=== PATIENT | male | born 1945 | race Caucasian/White ===

== ENCOUNTER 2016-10-06 11:17 | Day surgery (SDC) | payer MEDICARE, OTHER ==
[~2016-10-06] VITALS: Ht 167.6 cm; Wt 95.0 kg
[~2016-10-06 11:17] MED LIST: ADV25050 INH; ASPI-664 PO; FINA5TAB4 PO; GLIP5TAB13 PO; HYDR25TA6 PO; IPRA12.93 IH; LISI-329 PO; METF1000 PO; NIFE90TA11 PO; ROSU5TAB5 PO; TAMS0.4C2 PO
[2016-10-06 12:18] VITALS: Ht 167.6 cm; Wt 95.0 kg
[2016-10-06 12:54] VITALS: BP 148/72; PULSE 58; RESP 23
[2016-10-06] MEDS ORDERED: LIDOCAINE 2% (SDV) 5 ML INJ ONE (13:40)
[2016-10-06] MEDS ORDERED: PROPOFOL 40 ML ONE (13:40)
--- NOTE | 2016-10-06 15:16 | GILP ---
DATE OF PROCEDURE: 10/06/2016 NAME OF PROCEDURE: Colonoscopy, biopsy and polypectomy. SURGEON: Arjun Pompa MD PREOPERATIVE DIAGNOSES: Rectal bleeding. POSTOPERATIVE DIAGNOSES: 1. Colonoscopy all the way to the cecum. 2. Multiple right colon polyps were removed using the biopsy forceps as well as snare and electroca utery. 3. Internal and external hemorrhoids. INDICATION FOR THE PROCEDURE: Mr. Daniel Maldonado is a 71-year-old male patient who had rectal blee ding. The patient was scheduled for colonoscopy for further evaluation. The procedure and possible complications were well explained to the patient, he understood and conse nted to the procedure. DESCRIPTION OF PROCEDURE: Under the influence of anesthesia, the colonoscope was carefully introduc ed in the rectum and under direct vision, it was advanced all the way to the cecum. FINDINGS: The patient had multiple right colon polyps and they were removed using the snare and ludwig ctrocautery. The patient also had small polyps and they were removed using the biopsy forceps. He was noted to have internal and external hemorrhoids. He tolerated the procedure very well and there was no complication from the procedure. At the end o f the procedure, he was awake with stable vital signs and he was discharged home to the care of his family. IMPRESSION: 1. Colonoscopy all the way to the cecum. 2. Multiple right colon polyps were removed using the biopsy forceps as well as snare and electroca utery. 3. Internal and external hemorrhoids. PLAN: 1. Await histopathology report. 2. Anusol-HC 2.5% cream at bedtime. 3. Because of the multiple polyps the patient had, he will need repeat colonoscopy in 3 years. Dictated By: ARJUN SAUNDERS/KERRY Conf#: [id number] DID#: [id number] CC: RAJUN POMPA MD;*EndCC*
[2016-10-06 15:19] VITALS: BP 166/81; PULSE 78; RESP 12
--- NOTE | 2016-10-06 21:01 | CONS ---
DATE OF ADMISSION: 10/06/2016 DATE OF CONSULTATION: TYPE OF CONSULTATION: Preoperative Gastroenterology HISTORY OF PRESENT ILLNESS: Mr. Daniel Maldonado is a 71-year-old male patient who has been referred to me for further evaluation of rectal bleeding associated with anemia. The patient has been takin g iron. There is no past history of colon neoplasm. His appetite has been good and he is not losin g any weight. He does not have any upper abdominal pain, nausea or vomiting. The patient has lower abdominal pain. There is no history of gallstones. He does not have any fever, chills or jaundice . There is no history of liver disease. 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 He is hypertensive. He has diabetes. There is no history of heart disease. He has got chronic obstructive pulmonary disease. There is no history of kidney disease. The patient has got prostat e cancer for which he has received radiation therapy. SOCIAL HISTORY: He used to smoke, now he has quit smoking. He does not abuse alcohol. FAMILY HISTORY: Negative for gastrointestinal tract neoplasm. ALLERGIES: THERE IS NO HISTORY OF SIGNIFICANT DRUG ALLERGY. MEDICATIONS 1. Lisinopril 20 mg p.o. daily. 2. Nifedipine ER 90 mg p.o. daily. 3. Hydrochlorothiazide 25 mg p.o. daily. 4. Glyburide 5 mg p.o. b.i.d. 5. Metformin 500 mg p.o. b.i.d. 6. Januvia 100 mg p.o. daily. 7. Zytiga 500 mg p.o. b.i.d. 8. Finasteride 5 mg p.o. daily. 9. Prednisone 5 mg p.o. b.i.d. 10. Flomax 0.4 mg p.o. daily. PHYSICAL EXAMINATION: VITAL SIGNS: He is 5 feet 6 inches tall and he weighs 215 pounds. BMI 35. Blood pressure 138/84. HEART: Examination of the heart reveals normal first and second heart sounds. LUNGS: Clear. ABDOMEN: Soft without any distention. Liver and spleen are not palpable. There are no masses. Th ere is no focal tenderness. Normal bowel sounds are heard. RECTAL: Reveals external hemorrhoids. No rectal mass is identified. There is no active bleeding a t the time of examination. CENTRAL NERVOUS SYSTEM: Does not reveal any focal neurological deficit. IMPRESSION: 1. Rectal bleeding. 2. Anemia. 3. Lower abdominal pain. 4. Hypertension. 5. Diabetes mellitus. 6. Chronic obstructive pulmonary disease. 7. Prostate cancer for which he has received radiation therapy. 8. Obesity. PLAN: 1. Colonoscopy for further evaluation. 2. Because of the multiple medical problems and obesity, he needs monitored anesthesia care for the procedure. 3. The patient was strongly advised to lose weight. 4. Dietary consultation was recommended. 5. Follow up with the primary MD for the management of elevated BMI and hypertension. The procedure and possible complications were well explained to the patient. He understands and con sents to the procedure. I thank you once again. With warmest personal regards, Dictated By: SHANIKA POMPA MD GD/KERRY Conf#: [id number] DID#: [id number] CC: SHANIKA POMPA MD;*EndCC*
== END 2016-10-06 17:15 | disposition home or self-care (01) ==
LOC: GIL 11:17
PROVIDERS: ATTEND Internal Medicine Gastroenterology
DX: D12.2 Benign neoplasm of ascending colon (principal); K62.5 Hemorrhage of anus and rectum; K64.8 Other hemorrhoids; K64.4 Residual hemorrhoidal skin tags; I10 Essential (primary) hypertension; E11.9 Type 2 diabetes mellitus without complications; D64.9 Anemia, unspecified; E66.9 Obesity, unspecified; Z68.33 Body mass index [BMI] 33.0-33.9, adult; J44.9 Chronic obstructive pulmonary disease, unspecified; Z87.891 Personal history of nicotine dependence; Z85.46 Personal history of malignant neoplasm of prostate; Z92.3 Personal history of irradiation; Z79.84 Long term (current) use of oral hypoglycemic drugs
CPT/HCPCS: 88305

== ENCOUNTER 2018-06-01 11:58 | Inpatient (IN) | payer MEDICARE, OTHER ==
[~2018-06-01] VITALS: Ht 167.6 cm; Wt 95.5 kg
[~2018-06-01 11:58] MED LIST changes: -ASPI-664 PO; +ATRO IH; +CRES5 PO; -IPRA12.93 IH; -METF1000 PO; +METF100010 PO; -ROSU5TAB5 PO
[2018-06-01] MEDS ORDERED: ALBUTEROL 0.083% (NEB) 2.5 MG/3 ML AMP NEB STA (13:38)
[2018-06-01] MEDS ORDERED: IPRATROPIUM (NEB) 0.5 MG/2.5 ML AMP NEB STA (13:38)
[2018-06-01] MEDS ORDERED: DEXAMETHASONE (1 MG/ML PO SYG) PO ONE (14:00)
[2018-06-01] MEDS ORDERED: IPRATROPIUM (NEB) 0.5 MG/2.5 ML AMP HHN ONE (14:30)
--- NOTE | 2018-06-01 15:13 | ERD ---
ER Documentation Chief Complaint Chief Complaint PRODUCTIVE COUGH X 2 WEEKS HPI 72-year-old male history of asthma, insulin independent diabetes mellitus type 2, hypertension presents to the ED complaining of productive cough and shortness of breath for the past 2-3 weeks. Patient states that he was seen by his [facility] physician on May 17 in which they have given an Z-Lencho, patient states that he has finished it but continues to have shortness of breath and cough. Patient denies fevers, chest pain. He states that he uses his inhaler intermittently, he did not use his inhaler today. Patient states that he has a history of smoking but he quit 10 years ago. ROS All systems reviewed and are negative except as per history of present illness. Medications Home Meds Reported Medications Salmeterol Xinaf/Fluticasone* (Advair*) 250-50 Diskus Inhaler, 1 INH INH BID, INH 02/17/14 Ipratropium [place]* (Atrovent HFA*) 12.9 Gm Aer.w.adap, 2 PUFF IH Q4H PRN for SHORTNESS OF BREATH, EA 02/17/14 Glipizide* (Glipizide*) 5 Mg Tablet, 5 MG PO BID, TAB 02/17/14 Metformin Hcl* (Metformin Hcl*) 1,000 Mg Tablet, 1000 MG PO BID, TAB 02/17/14 Rosuvastatin Calcium* (Crestor*) 5 Mg Tablet, 5 MG PO HS, TAB 02/17/14 Finasteride* (Finasteride*) 5 Mg Tablet, 5 MG PO DAILY 02/22/13 Nifedipine* (Nifedipine ER*) 90 Mg Tablet.er, 90 MG PO DAILY 02/22/13 Lisinopril-Hydrochlorothiazide (Lisinopril-HCTZ) 1 Tab Tablet, 1 TAB PO DAILY 02/22/13 Hydrochlorothiazide (Hydrochlorothiazide) 25 Mg Tablet, 25 MG PO DAILY 02/22/13 Tamsulosin Hcl* (Tamsulosin Hcl*) 0.4 Mg Cap.er.24h, 0.4 MG PO DAILY 02/22/13 Allergies Allergies: Coded Allergies: No Known Allergy (Unverified , 02/17/14) PMhx/Soc History of Surgery: Yes (gastric sx., cataract sx.) Anesthesia Reaction: No Hx Neurological Disorder: Yes (stroke 2008) Hx Respiratory Disorders: Yes (COPD) Hx Cardiac Disorders: Yes (HTN,HYPERLIPIDEMIA) Hx Psychiatric Problems: No Hx Miscellaneous Medical Probl: Yes Hx Alcohol Use: No Hx Substance Use: No Hx Tobacco Use: Yes Smoking Status: Current every day smoker Physical Exam Vitals Vital Signs Date Temp Pulse Resp B/P (MAP) Pulse Ox O2 O2 Flow FiO2 Time Delivery Rate 06/01/18 98.2 72 17 137/65 95 Room Air 16:45 (89) 06/01/18 81 18 99 21 14:23 06/01/18 97.4 81 18 134/71 99 12:00 (92) Physical Exam Const: No acute distress Head: Atraumatic Eyes: Normal Conjunctiva ENT: Normal External Ears, Nose and Mouth. Neck: Full range of motion. No meningismus. Resp: Clear to auscultation bilaterally Cardio: Regular rate and rhythm, no murmurs Abd: Soft, non tender, non distended. Normal bowel sounds Skin: No petechiae or rashes Back: No midline or flank tenderness Ext: No cyanosis, or edema Neur: Awake and alert Psych: Normal Mood and Affect Results 24 hrs Current Medications Medications Dose Sig/Jarod Start Time Status Last (Trade) Ordered Route PRN Stop Time Admin Dose Reason Admin Albuterol 5 mg ONCE STAT 06/01/18 DC 06/01/18 (Proventil NEB 13:38 14:18 0.083% (Neb)) 06/01/18 13:40 Ipratropium 1.5 mg ONCE STAT 06/01/18 DC Orion NEB 13:38 (Atrovent 06/01/18 14:13 0.02% (Neb)) 10 mg ONCE ONCE 06/01/18 DC 06/01/18 Dexamethasone PO 14:00 14:04 (Decadron 06/01/18 14:01 Intensol Liquid) Ipratropium 1 mg ONCE ONCE 06/01/18 DC 06/01/18 Orion HHN 14:30 14:19 (Atrovent 06/01/18 14:31 0.02% (Neb)) Procedures/MDM 72-year-old male history of asthma, diabetes type 2 and hypertension presents to the ED complaining of productive cough and wheezing for the past 2-3 weeks. On exam, patient did have evidence of wheezing. RT was consulted and he was given a breathing treatment of albuterol and Atrovent. I have reassessed him and he states that he feels a lot better with breathing. Chest x-ray showed bilateral pulmonary nodular opacities therefore a CT scan was ordered in which radiologist stated several sclerotic lesions that were concerning for metastatic disease. I discussed this case with my supervising physician Dr. Harris who will consult hospitalist to admit to [facility] for further evaluation and management. Patient stable to be transferred to floor CT chest 1. Several sclerotic lesions of the visualized appendicular and axial skeleton, concerning for metastatic disease. Correlate with clinical history. Consider further evaluation with nuclear medicine bone scan. 2. Cluster of branching centrilobular nodules in the anterior right lower lobe suggestive of infectious or inflammatory bronchiolitis. 3. A few pulmonary nodules measuring up to 4 mm. No routine follow-up is recommended. However, if the patient is high risk, then optional follow-up CT chest in 12-months may be considered. 4. Mild centrilobular emphysema. CXR: Mild partial atelectasis in the left lung base. No focal consolidation or convincing effusion. No pneumothorax. Heart size is normal. Bilateral pulmonary nodular opacities, measuring up to 11 mm over the right upper lobe and 16 ml over the left mid lung zone Departure Diagnosis: Primary Impression: Cough Condition: Fair MOIZ STEVEN PA-C Jun 01, 2018 15:13
[2018-06-01] MEDS ORDERED: ASPI-817 PO (17:17)
[2018-06-01] MEDS ORDERED: BUDE6HFA INHALATION (17:17)
[2018-06-01] MEDS ORDERED: [UNRECOGNIZED DRUG - MIXTURE] PO (17:24)
[2018-06-01] MEDS ORDERED: ALBU18HF INHALATION (17:25)
[2018-06-01] MEDS ORDERED: LISI-471 PO (17:26)
[2018-06-01] MEDS ORDERED: SITA100T11 PO (17:26)
[2018-06-01] MEDS ORDERED: HYDR25TA6 PO (17:27)
[2018-06-01] MEDS ORDERED: CRES5 PO (17:27)
[2018-06-01] MEDS ORDERED: DEXL60CA2 PO (17:28)
[2018-06-01] MEDS ORDERED: PRED5TAB PO (17:29)
[2018-06-01] MEDS ORDERED: NIFE90TA11 PO (17:29)
[2018-06-01] MEDS ORDERED: ABIR500T PO (17:30)
[2018-06-01] MEDS ORDERED: LINA145C PO (17:30)
[2018-06-01] MEDS ORDERED: FINA5TAB4 PO (17:31)
[2018-06-01] MEDS ORDERED: ERGO500013 PO (17:31)
[2018-06-01] MEDS ORDERED: TAMS0.4C2 PO (17:32)
[2018-06-01] MEDS ORDERED: ACETAMINOPHEN 325 MG TAB PO PRN ×2 (18:00→20:30)
[2018-06-01] MEDS ORDERED: ONDANSETRON 4 MG INJ IV PRN ×2 (18:00→20:30)
[2018-06-01] MEDS ORDERED: SOD CHLORIDE 0.9% 1,000 ML IV SCH (20:15)
[2018-06-01 20:30] VITALS: Ht 167.6 cm; Wt 95.5 kg
[2018-06-01] MEDS ORDERED: POTASSIUM CHLORIDE 20 MEQ POWDER FOR ORAL SOLN PO ONE (20:30)
[2018-06-01] MEDS ORDERED: GUAIFENESIN/CODEINE 5ML CUP PO PRN (20:30)
[2018-06-01] MEDS ORDERED: HYDROCODONE/APAP (5/325) TAB PO PRN (20:30)
[2018-06-01] MEDS ORDERED: ALBUTEROL/IPRATROPIUM (NEB) 3 ML AMP HHN PRN (20:30)
[2018-06-01] MEDS ORDERED: NACL 0.9% 3 ML SYG IV SCH (20:30)
[2018-06-01] MEDS ORDERED: TAMSULOSIN (SR) 0.4 MG CAP PO SCH (21:00)
--- NOTE | 2018-06-01 21:14 | HP ---
Date/Time of Note Date/Time of Note DATE: 06/01/18 TIME: 21:14 Assessment/Plan VTE Prophylaxis Pharmacological prophylaxis: other Lines/Catheters IV Catheter Type (from [facility]): [place] Assessment/Plan Hospital Course Objective Physical exam General: Patient is laying in bed and answers questions appropriately Mentation: Patient is alert and oriented 4, Head: Normocephalic atraumatic Eyes: EOMI, pupils reactive to light Neck: Supple, nontender, midline Respiratory: Wheezing to auscultation bilaterally Cardiovascular: regular rate, no obvious murmurs Gastrointestinal: non-tender to palpation, bowel sounds heard. Neurological: Moves all extremities spontaneously Skin: No new skin lesions Assessment and plan Acute cough and mild shortness of breath -Possibly patient originally had a viral illness that has now exacerbated into a possible bacterial illness as CT does show infectious or inflammatory bronchiolitis, given the fact that patient takes prednisone every day with the Zytiga, patient is immunocompromised so will give cefepime -Budesonide and DuoNeb nebulizers -Patient very stable History of prostate cancer with metastases -Unable to confirm 100% from or patient if they know about the metastases, patient is seen by Dr. Mendez on a normal basis, he and his oncologist may very well know about the meds, instead of giving more radiation of this non-emergent issue, I will defer to day team to speak to Dr. Mendez in the daytime in order to figure out if this is a known issue or a new issue. If new I recommend castro scan CT. Lung nodules -Possible metastases, however will need to speak to patient's oncologist and urologist to see if this is a new finding, monitor for now Cholelithiasis -Asymptomatic, monitor Possible and adrenal adenoma -Monitor Emphysema -Nebulizers Disposition -Admit patient for IV antibiotics for his possible infectious bronchitis, day team will need to speak to Dr. Mendez in order to determine if further imaging will need to be done before patient follows up with his outpatient oncologist Result Diagram: 06/01/18 1642 06/01/18 1642 Results 24hrs Laboratory Tests Test 06/01/18 16:42 White Blood Count 9.7 Red Blood Count 4.48 L Hemoglobin 11.8 L Hematocrit 37.7 L Mean Corpuscular Volume 84.2 Mean Corpuscular Hemoglobin 26.3 L Mean Corpuscular Hemoglobin Concent 31.3 L Red Cell Distribution Width 14.4 Platelet Count 254 Mean Platelet Volume 9.4 Immature Granulocytes % 0.600 H Neutrophils % 87.5 H Lymphocytes % 7.9 L Monocytes % 3.0 Eosinophils % 0.6 Basophils % 0.4 Nucleated Red Blood Cells % 0.0 Immature Granulocytes # 0.060 H Neutrophils # 8.5 H Lymphocytes # 0.8 Monocytes # 0.3 Eosinophils # 0.1 Basophils # 0.0 Nucleated Red Blood Cells # 0.0 Sodium Level 142 Potassium Level 3.2 L Chloride Level 98 Carbon Dioxide Level 33 H Anion Gap 11 Blood Urea Nitrogen 18 Creatinine 0.82 Est Glomerular Filtrat Rate mL/min Glucose Level 212 Calcium Level 10.0 Total Bilirubin 0.3 Direct Bilirubin 0.00 Indirect Bilirubin 0.3 Aspartate Amino Transf (AST/SGOT) 15 Alanine Aminotransferase (ALT/SGPT) 15 Alkaline Phosphatase 99 Total Protein 8.1 Albumin 4.5 Globulin 3.60 H Albumin/Globulin Ratio 1.25 HPI/ROS Admit Date/Time Admit Date/Time Jun 01, 2018 at 17:42 Hx of Present Illness Patient is a male with a past medical history significant for prostate cancer on hormonal chemotherapy, asthma, diabetes mellitus and hypertension who presents to [facility] for productive cough and shortness of breath for the past 2-3 weeks that are worsening. Patient currently does state that he has some shortness of breath and some cough however I have not witnessed this during this encounter. Patient is otherwise doing well but does generally feel weak. Patient knows about his prostate cancer and after speaking with his he does follow-up with a urologist as well as a oncologist. When asked about if they know about the metastatic disease to the bone the was unsure but it seemed like they knew that it spread. Patient denies any chest pain, abdominal pain, leg pain, headache PMH/Family/Social Past Medical History Medications Current Medications Ondansetron HCl (Zofran Inj) 4 mg BRIDGE ORDER PRN IV NAUSEA/VOMITING; Start 06/01/18 at 18:00; Stop 06/02/18 at 17:59 Acetaminophen (Tylenol Tab) 650 mg ER BRIDGE PRN PO .MILD PAIN 1-3 OR TEMP; Start 06/01/18 at 18:00; Stop 06/02/18 at 17:59 Albuterol/ Ipratropium (Duoneb) 3 ml Q6HWA RESP THERAPY HHN ; Start 06/02/18 at 08:00; Status UNV Albuterol/ Ipratropium (Duoneb) 3 ml Q2H RESP THERAPY PRN HHN shortness of breath; Start 06/01/18 at 20:30; Status UNV Budesonide (Pulmicort (Neb)) 0.5 mg BID RESP THERAPY HHN ; Start 06/01/18 at 20:30; Status UNV Guaifenesin/ Codeine Phosphate (Robitussin Ac Liquid Cup) 5 ml Q4H PRN PO cough; Start 06/01/18 at 20:30; Status UNV Sodium Chloride 1,000 ml @ 40 mls/hr Q24H IV ; Start 06/01/18 at 20:15; Status UNV IV Flush (NS 3 ml) 3 ml PER PROTOCOL IV ; Start 06/01/18 at 20:30; Status UNV Ondansetron HCl (Zofran Inj) 4 mg Q6H PRN IV NAUSEA/VOMITING; Start 06/01/18 at 20:30; Status UNV Acetaminophen (Tylenol Tab) 650 mg Q6H PRN PO .PAIN 1-3 OR TEMP; Start 06/01/18 at 20:30; Status UNV Acetaminophen/ Hydrocodone Bitart ([place] (5/325)) 1 tab Q6H PRN PO .PAIN 4-6; Start 06/01/18 at 20:30; Status UNV Aspirin (Halfprin) 81 mg DAILY PO ; Start 06/02/18 at 09:00; Status UNV Finasteride (Proscar) 5 mg DAILY PO ; Start 06/02/18 at 09:00; Status UNV Hydrochlorothiazide (Hydrochlorothiazide) 25 mg DAILY PO ; Start 06/02/18 at 09:00; Status UNV Lisinopril (Zestril) 20 mg DAILY PO ; Start 06/02/18 at 09:00; Status UNV Nifedipine (Procardia Xl) 90 mg DAILY PO ; Start 06/02/18 at 09:00; Status UNV Tamsulosin HCl (Flomax) 0.8 mg HS PO ; Start 06/01/18 at 21:00; Status UNV Miscellaneous Information 5 mg QHS PO ; Start 06/01/18 at 21:00; Status UNV Miscellaneous Information (* Miscellaneous Pharmacy Order) Discontinue current oral sulfonylur... ONCE ONCE XX ; Start 06/01/18 at 20:30; Stop 06/01/18 at 20:31; Status UNV Diagnostic Test (Pha) (Accu-Chek) 1 ea XX ; Start 06/02/18 at 02:00; Status UNV Miscellaneous Information (* Miscellaneous Pharmacy Order) HYPOGLYCEMIA PROTOCOL w... ONCE ONCE XX ; Start 06/01/18 at 20:30; Stop 06/01/18 at 20:31; Status UNV Insulin Aspart (Novolog Insulin Pen) NOVOLOG *MILD* ALGORITHM WITH MEALS BEDTIME SC ; Start 06/01/18 at 21:00; Status UNV Miscellaneous Information (* Miscellaneous Pharmacy Order) Discontinue all previ... ONCE ONCE XX ; Start 06/01/18 at 20:30; Stop 06/01/18 at 20:31; Status UNV Pantoprazole (Protonix Tab) 40 mg DAILY@06 PO ; Start 06/02/18 at 06:00; Status UNV Coded Allergies: No Known Allergy (Unverified , 06/01/18) Social History Smoking Status: Current every day smoker Exam/Review of Systems Vital Signs Vitals Vital Signs Date Temp Pulse Resp B/P (MAP) Pulse Ox O2 O2 Flow FiO2 Time Delivery Rate 06/01/18 98.0 76 18 144/77 99 Nasal 19:23 (99) Cannula 76 06/01/18 21 14:23 CAMPOS DAMIAN Jun 01, 2018 21:14
[2018-06-01] MEDS ORDERED: GLUCAGON 1 MG INJ IM PRN (21:30)
[2018-06-01] MEDS ORDERED: CEFEPIME 1GM/50 ML (PMX) 50 ML IVPB ONE (21:30)
[2018-06-01] MEDS ORDERED: DEXTROSE 50% 50 ML SYRINGE IV PRN ×2 (21:30)
[2018-06-01] MEDS ORDERED: GLUCOSE GEL 15 GRAM TUBE PO PRN ×2 (21:30)
[2018-06-01] MEDS ORDERED: GLUCOSE GEL 15 GRAM TUBE BUCCAL PRN (21:30)
[2018-06-01] MEDS: BUDESONIDE (NEB) 0.5MG/2ML AMP HHN SCH (21:55)
[2018-06-01] MEDS: predniSONE 5 MG TAB PO SCH (22:05)
[2018-06-01] MEDS: INSULIN ASPART [NOVOLOG] 3 ML PEN SC SCH (22:22)
[2018-06-02] MEDS ORDERED: ACCU-CHEK XX SCH (02:00)
[2018-06-02 02:53] VITALS: BP 158/77; PULSE 66; RESP 18
[2018-06-02] MEDS ORDERED: PANTOPRAZOLE (EC) 40 MG TAB PO SCH (06:00)
[2018-06-02] MEDS: ALBUTEROL/IPRATROPIUM (NEB) 3 ML AMP HHN SCH ×3 (08:00→14:24)
[2018-06-02] MEDS: INSULIN ASPART [NOVOLOG] 3 ML PEN SC SCH ×2 (08:20→12:40)
[2018-06-02] MEDS: predniSONE 5 MG TAB PO SCH (08:22)
[2018-06-02 08:24] VITALS: BP 156/74; PULSE 58; RESP 18
[2018-06-02] MEDS: BUDESONIDE (NEB) 0.5MG/2ML AMP HHN SCH ×2 (08:45→11:36)
[2018-06-02] MEDS ORDERED: LISINOPRIL 20 MG TAB PO SCH (09:00)
[2018-06-02] MEDS ORDERED: HYDROCHLOROTHIAZIDE 25 MG TAB PO SCH (09:00)
[2018-06-02] MEDS ORDERED: ASPIRIN (EC) 81 MG TAB PO SCH (09:00)
[2018-06-02] MEDS ORDERED: NIFEdipine (XL) 90 MG TAB PO SCH (09:00)
[2018-06-02] MEDS ORDERED: FINASTERIDE 5 MG TAB PO SCH (09:00)
--- NOTE | 2018-06-02 10:36 | PDOCDIS ---
Discharge Instructions CONDITION [id number] Patient Condition: [id number] Good HOME CARE INSTRUCTIONS: [id number] Special Diet: [id number] Diabetic ACTIVITY: [id number] Activity Restrictions: [id number] No Restrictions FOLLOW UP/APPOINTMENTS Follow-up Plan Follow-up with your PCP in 1-2 weeks, follow-up with your urologist as scheduled RUIZ DUONG Jun 02, 2018 10:36
--- NOTE | 2018-06-02 10:39 | DS ---
Date/Time of Note Date/Time of Note DATE: 06/02/18 TIME: 10:36 Discharge Summary Admission/Discharge Info Admit Date/Time Jun 01, 2018 at 17:42 Discharge Date/Time June 02, 2018 Discharge Diagnosis Acute cough and mild shortness of breath likely secondary to viral bronchitis- resolved -No indication for further antibiotics History of prostate cancer with metastases -Patient does follow with his urologist, no indication for inpatient consultation Lung nodules -Possible metastases, follow-up with outpatient urology Cholelithiasis -Asymptomatic Possible and adrenal adenoma -Outpatient monitoring Emphysema -Nebulizers Patient Condition: Good Hospital Course Patient is a 72-year-old male with a history of likely prostate cancer with metastasis, emphysema who presents with acute shortness of breath and cough secondary to a viral bronchitis. Patient had no evidence of sepsis and symptoms did resolve. Patient had no further acute issues, on the day of discharge patient's vitals, labs of exam are stable. Home Meds Reported Medications Tamsulosin Hcl* (Tamsulosin Hcl*) 0.4 Mg Cap.er.24h, 0.8 MG PO HS, CAP 06/01/18 Finasteride* (Finasteride*) 5 Mg Tablet, 5 MG PO DAILY, TAB 06/01/18 Ergocalciferol (Vitamin D2) (VITAMIN D2) 50,000 Unit Capsule, 98558 UNIT PO Q7D, CAP 06/01/18 Linaclotide (LINZESS) 145 Mcg Capsule, 145 MCG PO DAILY, #30 CAP 06/01/18 Abiraterone Acetate (Zytiga) 500 Mg Tablet, 1000 MG PO DAILY, TAB 06/01/18 Prednisone* (Prednisone*) 5 Mg Tab, 5 MG PO BID, TAB 06/01/18 Nifedipine* (Nifedipine ER*) 90 Mg Tablet.er, 90 MG PO DAILY, TAB 06/01/18 Dexlansoprazole (Dexilant) 60 Mg Rocky., 60 MG PO DAILY, #30 CAP 06/01/18 Hydrochlorothiazide* (Hydrochlorothiazide*) 25 Mg Tab, 25 MG PO DAILY, #30 TAB 06/01/18 Rosuvastatin Calcium* (Crestor*) 5 Mg Tablet, 5 MG PO QHS, #30 TAB 06/01/18 Sitagliptin* (Januvia*) 100 Mg Tablet, 100 MG PO DAILY, #30 TAB 06/01/18 Lisinopril* (Lisinopril*) 20 Mg Tablet, 20 MG PO DAILY, #30 TAB 06/01/18 Albuterol Sulfate* (Ventolin HFA*) 18 Gm Hfa.aer.ad, 2 PUFF INHALATION TID, #1 INHALER 06/01/18 [Glglyburide/Metf] 5-500 MG No Conflict Check, 1 TAB PO BID GLYBURIDE/METFORMIN HCL 5-500MG BID 06/01/18 Aspirin* (Aspirin* EC) 81 Mg Tablet.dr, 81 MG PO DAILY, TAB 06/01/18 Budesonide-Formoterol Fumarate* (Symbicort*) 160-4.5 Hfa.aer.ad, 2 PUFF INH ALATION BID, #1 EACH 06/01/18 Discontinued Reported Medications Salmeterol Xinaf/Fluticasone* (Advair*) 250-50 Diskus Inhaler, 1 INH INH BID, INH 02/17/14 Ipratropium [place]* (Atrovent HFA*) 12.9 Gm Aer.w.adap, 2 PUFF IH Q4H PRN for SHORTNESS OF BREATH, EA 02/17/14 Glipizide* (Glipizide*) 5 Mg Tablet, 5 MG PO BID, TAB 02/17/14 Metformin Hcl* (Metformin Hcl*) 1,000 Mg Tablet, 1000 MG PO BID, TAB 02/17/14 Rosuvastatin Calcium* (Crestor*) 5 Mg Tablet, 5 MG PO HS, TAB 02/17/14 Finasteride* (Finasteride*) 5 Mg Tablet, 5 MG PO DAILY 02/22/13 Nifedipine* (Nifedipine ER*) 90 Mg Tablet.er, 90 MG PO DAILY 02/22/13 Lisinopril-Hydrochlorothiazide (Lisinopril-HCTZ) 1 Tab Tablet, 1 TAB PO DAILY 02/22/13 Hydrochlorothiazide (Hydrochlorothiazide) 25 Mg Tablet, 25 MG PO DAILY 02/22/13 Tamsulosin Hcl* (Tamsulosin Hcl*) 0.4 Mg Cap.er.24h, 0.4 MG PO DAILY 02/22/13 Follow-up Plan Follow-up with your PCP in 1-2 weeks, follow-up with your urologist as scheduled Primary Care Provider Care Physician No Primary Time spent on discharge: > 30 minutes RUIZ DUONGb 16, 2019 10:39
[2018-06-02] MEDS ORDERED: ATORVASTATIN 20 MG TAB PO SCH (21:00)
== END 2018-06-02 14:57 | disposition home or self-care (01) | DRG 202 ==
LOC: FTE 11:58 → MS1 17:42
PROVIDERS: ADMIT Internal Medicine; ATTEND Internal Medicine
DX: J20.8 Acute bronchitis due to other specified organisms (principal); J86.9 Pyothorax without fistula; Z85.46 Personal history of malignant neoplasm of prostate; R91.1 Solitary pulmonary nodule
CPT/HCPCS: 71046; 71250; 80053; 80061; 82962; 83036; 83735; 84443; 85025; 94640; 94664; J0692; J1815; J7030; J7512

== ENCOUNTER 2018-07-27 12:24 | Emergency (ER) | payer MEDICARE, OTHER ==
[~2018-07-27] VITALS: Ht 175.3 cm; Wt 98.0 kg
[~2018-07-27 12:24] MED LIST changes: +ABIR500T PO; -ADV25050 INH; +ALBU18HF INHALATION; +ASPI-817 PO; -ATRO IH; +BUDE6HFA INHALATION; +DEXL60CA2 PO; +ERGO500013 PO; -GLIP5TAB13 PO; +LINA145C PO; -LISI-329 PO; +LISI-471 PO; -METF100010 PO; +PRED5TAB PO; +SITA100T11 PO; +[UNRECOGNIZED DRUG - MIXTURE] PO
[2018-07-27 12:32] VITALS: BP 151/74; PULSE 73; RESP 16; Ht 175.3 cm; Wt 98.0 kg
== END 2018-07-27 15:00 | disposition left against medical advice (07) ==
LOC: E/R 12:24
DX: Z53.21 Procedure and treatment not carried out due to patient leaving prior to being seen by health care provider (principal)

== ENCOUNTER 2018-08-22 02:37 | Inpatient (IN) | payer MEDICARE, OTHER ==
[2018-08-22] VITALS (9 sets, daily range): BP systolic 126–163; BP diastolic 59–79; PULSE 53–89; RESP 16–22; Ht 157.5 cm; Wt 96.1 kg
[~2018-08-22] VITALS: Ht 157.5 cm; Wt 96.1 kg
[2018-08-22] MEDS ORDERED: ALBUTEROL 0.5% (NEB) 2.5 MG/0.5 ML AMP INH STA (02:46)
[2018-08-22] MEDS ORDERED: IPRATROPIUM (NEB) 0.5 MG/2.5 ML AMP INH STA (02:46)
[2018-08-22] MEDS ORDERED: METHYLPREDNISOLONE 125 MG INJ IV STA (02:46)
[2018-08-22] MEDS ORDERED: CEFEPIME 2GM/50 ML (PMX) 50 ML IVPB STA (02:56)
[2018-08-22] MEDS ORDERED: VANCOMYCIN 1 GM (PMX) 250 ML IVPB ONE (03:00)
--- NOTE | 2018-08-22 05:20 | ERD ---
ER Documentation Chief Complaint Chief Complaint BIB RA W/ C/O WORSENING SOB AND WHEEZING X3 HRS HPI This is a very pleasant 73-year-old male complains of worsening shortness of breath and wheezing for 3 hours. Patient brought in by ambulance. He was placed on CPAP by ambulance. According to the family. He said emphysema and bergeron s been admitted for this in the past but is never been intubated. Denies any fevers or chills. Denies any nausea vomiting. Denies any other current complaints. ROS All systems reviewed and are negative except as per history of present illness. Medications Home Meds Reported Medications Tamsulosin Hcl* (Tamsulosin Hcl*) 0.4 Mg Cap.er.24h, 0.8 MG PO HS, CAP 06/01/18 Finasteride* (Finasteride*) 5 Mg Tablet, 5 MG PO DAILY, TAB 06/01/18 Ergocalciferol (Vitamin D2) (VITAMIN D2) 50,000 Unit Capsule, 29870 UNIT PO Q7D, CAP 06/01/18 Linaclotide (LINZESS) 145 Mcg Capsule, 145 MCG PO DAILY, #30 CAP 06/01/18 Abiraterone Acetate (Zytiga) 500 Mg Tablet, 1000 MG PO DAILY, TAB 06/01/18 Prednisone* (Prednisone*) 5 Mg Tab, 5 MG PO BID, TAB 06/01/18 Nifedipine* (Nifedipine ER*) 90 Mg Tablet.er, 90 MG PO DAILY, TAB 06/01/18 Dexlansoprazole (Dexilant) 60 Mg Rocky.mp, 60 MG PO DAILY, #30 CAP 06/01/18 Hydrochlorothiazide* (Hydrochlorothiazide*) 25 Mg Tab, 25 MG PO DAILY, #30 TAB 06/01/18 Rosuvastatin Calcium* (Crestor*) 5 Mg Tablet, 5 MG PO QHS, #30 TAB 06/01/18 Sitagliptin* (Januvia*) 100 Mg Tablet, 100 MG PO DAILY, #30 TAB 06/01/18 Lisinopril* (Lisinopril*) 20 Mg Tablet, 20 MG PO DAILY, #30 TAB 06/01/18 Albuterol Sulfate* (Ventolin HFA*) 18 Gm Hfa.aer.ad, 2 PUFF INHALATION TID, #1 INHALER 06/01/18 [Glglyburide/Metf] 5-500 MG No Conflict Check, 1 TAB PO BID GLYBURIDE/METFORMIN HCL 5-500MG BID 06/01/18 Aspirin* (Aspirin* EC) 81 Mg Tablet.dr, 81 MG PO DAILY, TAB 06/01/18 Budesonide-Formoterol Fumarate* (Symbicort*) 160-4.5 Hfa.aer.ad, 2 PUFF INHALATION BID, #1 EACH 06/01/18 Allergies Allergies: Coded Allergies: No Known Allergy (Unverified , 06/01/18) PMhx/Soc History of Surgery: Yes (gastric surgery, cataract surgery) Anesthesia Reaction: No Hx Neurological Disorder: Yes (stroke ) Hx Respiratory Disorders: Yes (asthma, copd) Hx Cardiac Disorders: Yes (HTN, hyperlipidimia) Hx Psychiatric Problems: No Hx Miscellaneous Medical Probl: Yes (PROSTATE CA ) Hx Alcohol Use: No Hx Substance Use: No Hx Tobacco Use: No Smoking Status: Former smoker Physical Exam Vitals Vital Signs Date Temp Pulse Resp B/P (MAP) Pulse Ox O2 O2 Flow FiO2 Time Delivery Rate 08/22/18 87 17 150/75 100 Room Air 05:05 (100) 08/22/18 97.5 81 18 175/90 100 BIPAP 03:49 (118) 08/22/18 93 100 100 02:50 08/22/18 97.9 105 20 148/75 100 02:45 (99) Physical Exam Const: No acute distress Head: Atraumatic Eyes: Normal Conjunctiva ENT: Normal External Ears, Nose and Mouth. Neck: Full range of motion. No meningismus. Resp: Clear to auscultation bilaterally Cardio: Regular rate and rhythm, no murmurs Abd: Soft, non tender, non distended. Normal bowel sounds Skin: No petechiae or rashes Back: No midline or flank tenderness Ext: No cyanosis, or edema Neur: Awake and alert Psych: Normal Mood and Affect Result Diagram: 08/22/18 0246 08/22/18 0246 Results 24 hrs Laboratory Tests Test 08/22/18 02:46 08/22/18 02:55 White Blood Count 12.5 10^3/ul Red Blood Count 4.41 10^6/ul Hemoglobin 11.4 g/dl Hematocrit 36.7 % Mean Corpuscular Volume 83.2 fl Mean Corpuscular Hemoglobin 25.9 pg Mean Corpuscular Hemoglobin Concent 31.1 g/dl Red Cell Distribution Width 14.4 % Platelet Count 314 10^3/UL Mean Platelet Volume 9.3 fl Immature Granulocytes % 0.500 % Neutrophils % 64.2 % Lymphocytes % 24.0 % Monocytes % 8.4 % Eosinophils % 2.2 % Basophils % 0.7 % Nucleated Red Blood Cells % 0.0 /100WBC Immature Granulocytes # 0.060 10^3/ul Neutrophils # 8.0 10^3/ul Lymphocytes # 3.0 10^3/ul Monocytes # 1.1 10^3/ul Eosinophils # 0.3 10^3/ul Basophils # 0.1 10^3/ul Nucleated Red Blood Cells # 0.0 10^3/ul Prothrombin Time 11.1 Sec Prothrombin Time Ratio 0.9 INR International Normalized Ratio 0.79 Activated Partial Thromboplast Time 28.1 Sec Blood Gas Specimen Source Blood arterial Arterial Blood Date Drawn 08/22/2018 3:25:36 AM Arterial Blood pH (Temp corrected) 7.390 Arterial Blood pCO2 (Temp correct) 46.6 mmhg Arterial Blood pO2 (Temp corrected) 573.8 mmHG Arterial Blood HCO3 27.6 mmol/L Arterial Blood Base Excess 2.1 mmol/L Arterial Blood Oxygen Saturation 99.5 mmHG Mitchell Test ACCEPTAB Arterial Blood Gas Puncture Site Right Radial Arterial Blood Carboxyhemoglobin 0.2 % Arterial Blood Methemoglobin 0.4 % Blood Gas A-a O2 Differential 92.6 mmHg Oxyhemoglobin Percent 98.9 % Blood Gas Temperature 37.0 C Blood Gas Respiration Rate 18.0 Blood Gas Actual Respiration Rate 21 Blood Gas Modality MASK - BIPAP FiO2 100.0 % Blood Gas Pressure Support 11 Blood Gas IPAP/EPAP Ratio 16/5 Blood Gas Notified Whom MR Blood Gas Notified Time 08/22/2018 3:32:14 AM Sodium Level 146 mmol/L Potassium Level 3.2 mmol/L Chloride Level 105 mmol/L Carbon Dioxide Level 29 mmol/L Anion Gap 12 Blood Urea Nitrogen 28 mg/dl Creatinine 1.30 mg/dl Est Glomerular Filtrat Rate mL/min mL/min Glucose Level 129 mg/dl Calcium Level 9.9 mg/dl Total Bilirubin 0.3 mg/dl Direct Bilirubin 0.00 mg/dl Indirect Bilirubin 0.3 mg/dl Aspartate Amino Transf (AST/SGOT) 18 IU/L Alanine Aminotransferase (ALT/SGPT) 17 IU/L Alkaline Phosphatase 105 IU/L Troponin I < 0.012 ng/ml B-Type Natriuretic Peptide 476 PG/ML Total Protein 7.6 g/dl Albumin 4.3 g/dl Globulin 3.30 g/dl Albumin/Globulin Ratio 1.30 POC Venous Lactate 2.1 mmol/L Current Medications Medications Dose Sig/Jarod Start Time Status Last (Trade) Ordered Route PRN Stop Time Admin Dose Reason Admin Albuterol 10 mg ONCE STAT 08/22/18 DC 08/22/18 (Proventil INH 02:46 08/22/18 02:59 0.5% (Neb)) 02:47 Ipratropium 1 mg ONCE STAT 08/22/18 DC 08/22/18 [place] INH 02:46 08/22/18 02:59 (Atrovent 02:47 0.02% (Neb)) 125 mg ONCE STAT 08/22/18 DC 08/22/18 Methylprednis IV 02:46 08/22/18 03:08 olone Sodium 02:47 Succinate (Solu-Medrol) Cefepime HCl 50 ml @ ONCE STAT 08/22/18 DC 08/22/18 100 mls/hr IVPB 02:56 08/22/18 03:08 03:25 Vancomycin 250 ml @ ONCE ONCE 08/22/18 DC 08/22/18 HCl 125 mls/hr IVPB 03:00 08/22/18 03:40 04:59 Procedures/MDM EKG: Rate/Rhythm: [Normal Sinus Rhythm] QRS, ST, T-waves: [No changes consistent w/ acute ischemia] Impression: [No evidence of ischemia or arrhythmia] Chest X-ray 1V Interpreted by me: Soft Tissue: No acute abnormalities Bones: No acute abnormalities Mediastinum/Cardiac Silhouette/Lungs: [No acute abnormalities] Medical decision making: Patient's respiratory symptoms have not responded to normal outpatient therapy and will require inpatient workup, monitoring, and treatment. Patient was started on BiPAP and given steroids. He did have an elevated lactic of 2.1, however I do not believe this patient is septic. This is likely secondary to respiratory driven acidosis. He has no evidence of infection. Patient was started on prophylactic antibiotics secondary to emphysema but I do not believe this patient has sepsis and therefore he did not get a fluid bolus Accepting Care Team: Current data and ongoing care discussed. Time: 4 AM Primary Provider: Hospitalist Consulting: Deferred to inpatient team Outstanding Data: none Critical Care: Time: 45 minutes, independent of any separately billable procedural time Treatments/Evaluations: Close monitoring and treatment of unstable vital signs, cardiorespiratory, and neurologic status, while maintaining tight balance of fluid, respiratory, and cardiac interventions. Departure Diagnosis: Primary Impression: Shortness of breath Condition: Critical JAYSON CARROLL August 22, 2018 05:20
[2018-08-22] MEDS ORDERED: ALBUTEROL/IPRATROPIUM (NEB) 3 ML AMP HHN PRN ×2 (06:00→06:30)
[2018-08-22] MEDS ORDERED: ONDANSETRON 4 MG INJ IV PRN (06:30)
[2018-08-22] MEDS ORDERED: ACETAMINOPHEN 325 MG TAB PO PRN (06:30)
[2018-08-22] MEDS ORDERED: LEVOFLOXACIN 500MG/D5W (PMX) 100 ML IVPB SCH (06:30)
[2018-08-22] MEDS ORDERED: NACL 0.9% 3 ML SYG IV SCH (06:30)
--- NOTE | 2018-08-22 07:17 | HP ---
Date/Time of Note Date/Time of Note DATE: 08/22/18 TIME: 07:13 Assessment/Plan VTE Prophylaxis Pharmacological prophylaxis: heparin Lines/Catheters IV Catheter Type (from Nrsg): Saline Lock Assessment/Plan Assessment/Plan 1. Shortness of breath: Likely secondary to emphysema, bronchitis and also metastatic disease to the lung -Supplemental oxygen, bronchodilators, steroid, IV antibiotic 2. Sepsis: As evidenced by leukocytosis, lactic acidosis and tachycardia: Secondary to URI/bronchitis -IV antibiotic -Follow-up culture results 3. Metastatic prostate cancer: Follow-up with oncology 4. Hypertension: Adjust BP meds as needed 5. Type 2 diabetes: Insulin while in-house 6. Dyslipidemia: Continue statin 7. BPH: Continue home med Result Diagram: 08/22/18 0246 08/22/18 0246 Results 24hrs Laboratory Tests Test 08/22/18 02:46 08/22/18 02:55 08/22/18 05:00 08/22/18 05:55 White Blood Count 12.5 #H Red Blood Count 4.41 L Hemoglobin 11.4 L Hematocrit 36.7 L Mean Corpuscular 83.2 Volume Mean Corpuscular 25.9 L Hemoglobin Mean Corpuscular 31.1 L Hemoglobin Concent Red Cell 14.4 Distribution Width Platelet Count 314 # Mean Platelet 9.3 Volume Immature 0.500 H Granulocytes % Neutrophils % 64.2 Lymphocytes % 24.0 Monocytes % 8.4 Eosinophils % 2.2 Basophils % 0.7 Nucleated Red 0.0 Blood Cells % Immature 0.060 H Granulocytes # Neutrophils # 8.0 H Lymphocytes # 3.0 H Monocytes # 1.1 H Eosinophils # 0.3 Basophils # 0.1 Nucleated Red 0.0 Blood Cells # Prothrombin Time 11.1 L Prothrombin Time 0.9 Ratio INR International 0.79 Normalized Ratio Activated 28.[address] Time Blood Gas Specimen Blood arterial Source Arterial Blood 08/22/2018 3:25:36 Date Drawn AM Arterial Blood pH 7.390 (Temp corrected) Arterial Blood 46.6 H pCO2 (Temp correct) Arterial Blood pO2 573.8 H (Temp corrected) Arterial Blood 27.6 H HCO3 Arterial Blood 2.1 Base Excess Arterial Blood 99.5 Oxygen Saturation Mitchell Test ACCEPTAB Arterial Blood Gas Right Radial Puncture Site Arterial 0.2 Blood Carboxyhemog lobin Arterial Blood 0.4 Methemoglobin Blood Gas A-a O2 92.6 H Differential Oxyhemoglobin 98.9 Percent Blood Gas 37.0 Temperature Blood Gas 18.0 Respiration Rate Blood Gas Actual 21 Respiration Rate Blood Gas Modality MASK - BIPAP FiO2 100.0 Blood Gas Pressure 11 Support Blood Gas 16/5 IPAP/EPAP Ratio Blood Gas Notified MR Monae Blood Gas Notified 08/22/2018 3:32:14 Time AM Sodium Level 146 H Potassium Level 3.2 L Chloride Level 105 Carbon Dioxide 29 Level Anion Gap 12 Blood Urea 28 H Nitrogen Creatinine 1.30 H Est Glomerular Filtrat Rate mL/min Glucose Level 129 Calcium Level 9.9 Total Bilirubin 0.3 Direct Bilirubin 0.00 Indirect Bilirubin 0.3 Aspartate Amino 18 Transf (AST/SGOT) Alanine 17 Aminotransferase ( ALT/SGPT) Alkaline 105 Phosphatase Troponin I < 0.012 B-Type Natriuretic 476 H Peptide Total Protein 7.6 Albumin 4.3 Globulin 3.30 H Albumin/Globulin 1.30 Ratio POC Venous Lactate 2.1 *H Lactic Acid Level 2.1 *H 3.0 *H HPI/ROS Admit Date/Time Admit Date/Time August 22, 2018 at 04:10 Hx of Present Illness This is a 73-year-old male with a history of metastatic prostate cancer, emphysema, pulmonary nodules (likely representing metastasis). Patient presented to ER complaining of shortness of breath which started a few hours prior to arrival to the ER. Shortness of breath however has been progressively getting worse for past several days. Reported cough which occasionally has been productive. Patient was admitted here about 3 months ago for shortness of breat h and cough, which was thought to be from a viral bronchitis and emphysema. Patient however has lung nodules, likely representing metastasis as well. When he presented to ER, he was tachycardic, WBC 12.5, lactic acid 2.1, which has been rising. Chest x-ray without acute findings. PMH/Family/Social Past Medical History Past Surgical Hx: other (HPI) Family History Significant Family History: no pertinent family hx Social History Alcohol Use: none Smoking Status: Never smoker Drug Use: none Exam Constitutional: alert, oriented, well developed Head: normocephalic, atraumatic Eyes: EOMI, PERRL Respiratory: clear to auscultation, normal air movement Cardiovascular: regular rate and rhythm, nl pulses Gastrointestinal: soft, other (Right lower quadrant tenderness elicited on palpation. Patient also with right flank pain) Extremities: normal pulses Medications Current Medications Albuterol/ Ipratropium (Duoneb) 3 ml Q6H RESP THERAPY HHN ; Start 08/22/18 at 08:00 Albuterol/ Ipratropium (Duoneb) 3 ml Q2H RESP THERAPY PRN HHN sob; Start 08/22/18 at 06:00 IV Flush (NS 3 ml) 3 ml PER PROTOCOL IV ; Start 08/22/18 at 06:30 Ondansetron HCl (Zofran Inj) 4 mg Q6H PRN IV NAUSEA/VOMITING; Start 08/22/18 at 06:30 Acetaminophen (Tylenol Tab) 650 mg Q6H PRN PO .PAIN 1-3 OR TEMP; Start 08/22/18 at 06:30 Heparin Sodium (Porcine) (Heparin (5000 Units/1ml)) 5,000 unit Q12 SC ; Start 08/22/18 at 09:00 Albuterol (Ventolin Hfa) 2 puff QID RESP THERAPY INH ; Start 08/22/18 at 08:00 Aspirin (Halfprin) 81 mg DAILY PO ; Start 08/22/18 at 09:00 Finasteride (Proscar) 5 mg DAILY PO ; Start 08/22/18 at 09:00 Nifedipine (Procardia Xl) 90 mg DAILY PO ; Start 08/22/18 at 09:00 Prednisone (Prednisone) 5 mg BID PO ; Start 08/22/18 at 09:00; Status UNV Tamsulosin HCl (Flomax) 0.8 mg HS PO ; Start 08/22/18 at 21:00 Miscellaneous Information 1,000 mg DAILY PO ; Start 08/22/18 at 09:00; Status UNV Miscellaneous Information 2 puff BID INHALATION ; Start 08/22/18 at 09:00; Status UNV Miscellaneous Information 60 mg DAILY PO ; Start 08/22/18 at 09:00; Status UNV Miscellaneous Information 145 mcg DAILY PO ; Start 08/22/18 at 09:00; Status UNV Miscellaneous Information 5 mg QHS PO ; Start 08/22/18 at 21:00; Status UNV Miscellaneous Information 100 mg DAILY PO ; Start 08/22/18 at 09:00; Status UNV Methylprednisolone Sodium Succinate (Solu-Medrol) 60 mg DAILY IV ; Start 08/22/18 at 09:00; Status UNV Levofloxacin/ Dextrose 100 ml @ 100 mls/hr Q24H IVPB ; Start 08/22/18 at 06:30 Coded Allergies: No Known Allergy (Unverified , 06/01/18) Social History Smoking Status: Former smoker Exam/Review of Systems Vital Signs Vitals Vital Signs Date Temp Pulse Resp B/P (MAP) Pulse Ox O2 O2 Flow FiO2 Time Delivery Rate 08/22/18 99 30 05:52 08/22/18 97.6 67 22 143/69 BIPAP 05:33 (93) Intake and Output 08/21/18 08/21/18 08/22/18 1515:00 23:00 07:00 IntakeIntake Total 50 ml BalanceBalance 50 ml JAYSON HINTON MD August 22, 2018 07:17
[2018-08-22] MEDS: ALBUTEROL/IPRATROPIUM (NEB) 3 ML AMP HHN SCH ×3 (08:00→20:31)
[2018-08-22] MEDS: PANTOPRAZOLE (EC) 40 MG TAB PO SCH (08:45)
[2018-08-22] MEDS: NIFEdipine (XL) 90 MG TAB PO SCH (08:45)
[2018-08-22] MEDS: ASPIRIN (EC) 81 MG TAB PO SCH (08:46)
[2018-08-22] MEDS: LINAGLIPTIN 5 MG TABLET PO SCH (08:46)
[2018-08-22] MEDS: ALBUTEROL HFA 8 GM INHALER INH SCH ×4 (08:46→20:00)
[2018-08-22] MEDS: FINASTERIDE 5 MG TAB PO SCH (08:46)
[2018-08-22] MEDS ORDERED: METHYLPREDNISOLONE 125 MG INJ IV SCH ×2 (09:00→21:00)
[2018-08-22] MEDS ORDERED: NON-FORMULARY/PATIENT OWN MED (Abiraterone Acetate (Zytiga) 1,000 MG) PO SCH (09:00)
[2018-08-22] MEDS ORDERED: NON-FORMULARY/PATIENT OWN MED (Dexlansoprazole (Dexilant) 60 MG) PO SCH (09:00)
[2018-08-22] MEDS ORDERED: NON-FORMULARY/PATIENT OWN MED (Linaclotide (Linzess) 145 MCG) PO SCH (09:00)
[2018-08-22] MEDS ORDERED: predniSONE 5 MG TAB PO SCH (09:00)
[2018-08-22] MEDS: BUDESONIDE (NEB) 0.5MG/2ML AMP INH SCH ×2 (09:00→20:31)
[2018-08-22] MEDS ORDERED: NON-FORMULARY/PATIENT OWN MED (Budesonide-Formoterol Fumarate* (Symbicort*) 2 PUFF) INHALATION SCH (09:00)
[2018-08-22] MEDS: ARFORMOTEROL TARTRATE 15MCG/2 ML AMP INH SCH ×2 (09:00→20:31)
[2018-08-22] MEDS: HEPARIN 5,000 UNIT/1 ML VIAL SC SCH ×2 (09:03→21:59)
--- NOTE | 2018-08-22 14:22 | PN ---
Date/Time of Note Date/Time of Note DATE: 08/22/18 TIME: 14:08 Assessment/Plan VTE Prophylaxis Risk score (from Ns)>0 risk: 6 SCD applied (from [facility]): Yes Pharmacological prophylaxis: heparin Lines/Catheters IV [facility]from [facility] Saline Lock Urinary Cath still in place: No Assessment/Plan Assessment/Plan 1. COPD exacerbation, improving on solumedrol, levaquin and nebs, decrease solumedrol 2. Lactic acidosis, due to hypoxia/infection, and metformin, metformin stopped, IVF 3. Sepsis, IVF, antibiotics 4. Metastatic prostate cancer: Follow-up with oncology 5. Hypertension, controlled 6. Type 2 diabetes, on trajenta, ISS, stop metformin 7. Dyslipidemia: Continue statin 8. BPH: Continue home med 9. DVT prophylaxis: heparin Result Diagram: 08/22/18 0246 08/22/18 0246 Results 24hrs Laboratory Tests Test 08/22/18 02:46 08/22/18 02:55 08/22/18 05:00 08/22/18 05:55 White Blood Count 12.5 #H Red Blood Count 4.41 L Hemoglobin 11.4 L Hematocrit 36.7 L Mean Corpuscular 83.2 Volume Mean Corpuscular 25.9 L Hemoglobin Mean Corpuscular 31.1 L Hemoglobin Concent Red Cell 14.4 Distribution Width Platelet Count 314 # Mean Platelet 9.3 Volume Immature 0.500 H Granulocytes % Neutrophils % 64.2 Lymphocytes % 24.0 Monocytes % 8.4 Eosinophils % 2.2 Basophils % 0.7 Nucleated Red 0.0 Blood Cells % Immature 0.060 H Granulocytes # Neutrophils # 8.0 H Lymphocytes # 3.0 H Monocytes # 1.1 H Eosinophils # 0.3 Basophils # 0.1 Nucleated Red 0.0 Blood Cells # Prothrombin Time 11.1 L Prothrombin Time 0.9 Ratio INR International 0.79 Normalized Ratio Activated 28.[address] Time Blood Gas Specimen Blood arterial Source Arterial Blood 08/22/2018 3:25:36 Date Drawn AM Arterial Blood pH 7.390 (Temp corrected) Arterial Blood 46.6 H pCO2 (Temp correct) Arterial Blood pO2 573.8 H (Temp corrected) Arterial Blood 27.6 H HCO3 Arterial Blood 2.1 Base Excess Arterial Blood 99.5 Oxygen Saturation Mitchell Test ACCEPTAB Arterial Blood Gas Right Radial Puncture Site Arterial 0.2 Blood Carboxyhemog lobin Arterial Blood 0.4 Methemoglobin Blood Gas A-a O2 92.6 H Differential Oxyhemoglobin 98.9 Percent Blood Gas 37.0 Temperature Blood Gas 18.0 Respiration Rate Blood Gas Actual 21 Respiration Rate Blood Gas Modality MASK - BIPAP FiO2 100.0 Blood Gas Pressure 11 Support Blood Gas 16/5 IPAP/EPAP Ratio Blood Gas Notified MR Whom Blood Gas Notified 08/22/2018 3:32:14 Time AM Sodium Level 146 H Potassium Level 3.2 L Chloride Level 105 Carbon Dioxide 29 Level Anion Gap 12 Blood Urea 28 H Nitrogen Creatinine 1.30 H Est Glomerular Filtrat Rate mL/min Glucose Level 129 Calcium Level 9.9 Total Bilirubin 0.3 Direct Bilirubin 0.00 Indirect Bilirubin 0.3 Aspartate Amino 18 Transf (AST/SGOT) Alanine 17 Aminotransferase ( ALT/SGPT) Alkaline 105 Phosphatase Troponin I < 0.012 B-Type Natriuretic 476 H Peptide Total Protein 7.6 Albumin 4.3 Globulin 3.30 H Albumin/Globulin 1.30 Ratio POC Venous Lactate 2.1 *H Lactic Acid Level 2.1 *H 3.0 *H Test 08/22/18 08:26 08/22/18 10:36 Bedside Glucose 268 H Lactic Acid Level 4.2 *H Subjective 24 Hr Interval Summary Free Text/Dictation less shortness of breath, no fever or chills Exam/Review of Systems Exam Vitals Vital Signs Date Temp Pulse Resp B/P (MAP) Pulse Ox O2 O2 Flow FiO2 Time Delivery Rate 08/22/18 66 12:15 08/22/18 98.3 19 135/67 99 11:13 (89) 08/22/18 30 05:52 08/22/18 BIPAP 05:33 Intake and Output 08/21/18 08/21/18 08/22/18 1515:00 23:00 07:00 IntakeIntake Total 50 ml BalanceBalance 50 ml Constitutional: alert, oriented, well developed Psych: no complaints, nl mood/affect Head: normocephalic, atraumatic Eyes: nl conjunctiva, EOMI, nl lids, PERRL ENMT: nl external ears & nose, nl lips & teeth, nl nasal mucosa & septum Neck: supple, non-tender Respiratory: clear to auscultation, normal air movement; No congested cough, No crackles/rales, No diminished breath sounds, No intercostal retraction, No labored breathing, No respirations, No tactile fremitus, No wheezing, No other Cardiovascular: regular rate and rhythm, nl pulses; No bruits, No diastolic murmur, No edema, No gallop, No irregular rhythm, No jugular venous distention (JVD), No murmurs/extra sounds, No rub, No systolic murmur, No S3, No S4, No other Gastrointestinal: soft, nl liver, spleen, non-tender Musculoskeletal: nl extremities to inspection Extremities: normal pulses; No calf tenderness, No cyanosis, No clubbing, No edema, No pitting pedal edema, No palpable cord, No tenderness, No other Neurological: [employer] II-XII intact, nl mental status, nl speech, nl strength Results Results 24hrs Laboratory Tests Test 08/22/18 02:46 08/22/18 02:55 08/22/18 05:00 08/22/18 05:55 White Blood Count 12.5 #H Red Blood Count 4.41 L Hemoglobin 11.4 L Hematocrit 36.7 L Mean Corpuscular 83.2 Volume Mean Corpuscular 25.9 L Hemoglobin Mean Corpuscular 31.1 L Hemoglobin Concent Red Cell 14.4 Distribution Width Platelet Count 314 # Mean Platelet 9.3 Volume Immature 0.500 H Granulocytes % Neutrophils % 64.2 Lymphocytes % 24.0 Monocytes % 8.4 Eosinophils % 2.2 Basophils % 0.7 Nucleated Red 0.0 Blood Cells % Immature 0.060 H Granulocytes # Neutrophils # 8.0 H Lymphocytes # 3.0 H Monocytes # 1.1 H Eosinophils # 0.3 Basophils # 0.1 Nucleated Red 0.0 Blood Cells # Prothrombin Time 11.1 L Prothrombin Time 0.9 Ratio INR International 0.79 Normalized Ratio Activated 28.[address] Time Blood Gas Specimen Blood arterial Source Arterial Blood 08/22/2018 3:25:36 Date Drawn AM Arterial Blood pH 7.390 (Temp corrected) Arterial Blood 46.6 H pCO2 (Temp correct) Arterial Blood pO2 573.8 H (Temp corrected) Arterial Blood 27.6 H HCO3 Arterial Blood 2.1 Base Excess Arterial Blood 99.5 Oxygen Saturation Mitchell Test ACCEPTAB Arterial Blood Gas Right Radial Puncture Site Arterial 0.2 Blood Carboxyhemog lobin Arterial Blood 0.4 Methemoglobin Blood Gas A-a O2 92.6 H Differential Oxyhemoglobin 98.9 Percent Blood Gas 37.0 Temperature Blood Gas 18.0 Respiration Rate Blood Gas Actual 21 Respiration Rate Blood Gas Modality MASK - BIPAP FiO2 100.0 Blood Gas Pressure 11 Support Blood Gas 16/5 IPAP/EPAP Ratio Blood Gas Notified MR Whom Blood Gas Notified 08/22/2018 3:32:14 Time AM Sodium Level 146 H Potassium Level 3.2 L Chloride Level 105 Carbon Dioxide 29 Level Anion Gap 12 Blood Urea 28 H Nitrogen Creatinine 1.30 H Est Glomerular Filtrat Rate mL/min Glucose Level 129 Calcium Level 9.9 Total Bilirubin 0.3 Direct Bilirubin 0.00 Indirect Bilirubin 0.3 Aspartate Amino 18 Transf (AST/SGOT) Alanine 17 Aminotransferase ( ALT/SGPT) Alkaline 105 Phosphatase Troponin I < 0.012 B-Type Natriuretic 476 H Peptide Total Protein 7.6 Albumin 4.3 Globulin 3.30 H Albumin/Globulin 1.30 Ratio POC Venous Lactate 2.1 *H Lactic Acid Level 2.1 *H 3.0 *H Test 08/22/18 08:26 08/22/18 10:36 Bedside Glucose 268 H Lactic Acid Level 4.2 *H Medications Medication Current Medications Albuterol/ Ipratropium (Duoneb) 3 ml Q6H RESP THERAPY HHN ; Start 08/22/18 at 08:00 Albuterol/ Ipratropium (Duoneb) 3 ml Q2H RESP THERAPY PRN HHN sob; Start 08/22/18 at 06:00 IV Flush (NS 3 ml) 3 ml PER PROTOCOL IV ; Start 08/22/18 at 06:30 Ondansetron HCl (Zofran Inj) 4 mg Q6H PRN IV NAUSEA/VOMITING; Start 08/22/18 at 06:30 Acetaminophen (Tylenol Tab) 650 mg Q6H PRN PO .PAIN 1-3 OR TEMP; Start 08/22/18 at 06:30 Heparin Sodium (Porcine) (Heparin (5000 Units/1ml)) 5,000 unit Q12 SC Last administered on 08/22/18at 09:03; Admin Dose 5,000 UNIT; Start 08/22/18 at 09:00 Albuterol (Ventolin Hfa) 2 puff QID RESP THERAPY INH Last administered on 08/22/18 12:26; Admin Dose 2 PUFF; Start 08/22/18 at 08:00 Aspirin (Halfprin) 81 mg DAILY PO Last administered on 08/22/18 08:46; Admin Dose 81 MG; Start 08/22/18 at 09:00 Finasteride (Proscar) 5 mg DAILY PO Last administered on 08/22/18 08:46; Admin Dose 5 MG; Start 08/22/18 at 09:00 Nifedipine (Procardia Xl) 90 mg DAILY PO Last administered on 08/22/18 08:45; Admin Dose 90 MG; Start 08/22/18 at 09:00 Prednisone (Prednisone) 5 mg BID PO Last administered on 08/22/18 08:45; Admin Dose 5 MG; Start 08/22/18 at 09:00 Tamsulosin HCl (Flomax) 0.8 mg HS PO ; Start 08/22/18 at 21:00 Miscellaneous Information 1,000 mg DAILY PO ; Start 08/22/18 at 09:00; Status UNV Miscellaneous Information 145 mcg DAILY PO ; Start 08/22/18 at 09:00; Status UNV Atorvastatin Calcium (Lipitor) 20 mg DAILY@21 PO ; Start 08/22/18 at 21:00 Linagliptin (Tradjenta) 5 mg DAILY PO Last administered on 08/22/18 08:46; Admin Dose 5 MG; Start 08/22/18 at 09:00 Methylprednisolone Sodium Succinate (Solu-Medrol) 60 mg DAILY IV Last administered on 08/22/18 08:45; Admin Dose 60 MG; Start 08/22/18 at 09:00 Levofloxacin/ Dextrose 100 ml @ 100 mls/hr Q24H IVPB Last administered on 08/22/18 08:44; Admin Dose 100 MLS/HR; Start 08/22/18 at 06:30 Pantoprazole (Protonix Tab) 40 mg DAILY@06 PO Last administered on 08/22/18 08:45; Admin Dose 40 MG; Start 08/22/18 at 07:57 Arformoterol Tartrate (Brovana (Neb)) 2 ml BID RESP THERAPY INH ; Start 08/22/18 at 09:00 Budesonide (Pulmicort (Neb)) 0.5 mg BID RESP THERAPY INH ; Start 08/22/18 at 09:00 MARLENE GREGORY MD August 22, 2018 14:19
[2018-08-22] MEDS: POTASSIUM CHLORIDE 10 MEQ in SOD CHLORIDE 0.45% 1,000 ML IV SCH (16:03)
[2018-08-22] MEDS: ATORVASTATIN 20 MG TAB PO SCH (21:52)
[2018-08-22] MEDS: TAMSULOSIN (SR) 0.4 MG CAP PO SCH (21:52)
[2018-08-22] MEDS: METHYLPREDNISOLONE 40 MG INJ IV SCH (22:02)
[2018-08-23] VITALS (12 sets, daily range): BP systolic 118–169; BP diastolic 57–77; PULSE 51–66; RESP 18–20
[2018-08-23] MEDS: ALBUTEROL/IPRATROPIUM (NEB) 3 ML AMP HHN SCH ×4 (01:47→19:23)
[2018-08-23] MEDS ORDERED: VANCOMYCIN IV PER PHARMACY XX SCH (03:00)
[2018-08-23] MEDS: POTASSIUM CHLORIDE 10 MEQ in SOD CHLORIDE 0.45% 1,000 ML IV SCH ×3 (04:01→15:06)
[2018-08-23] MEDS: PANTOPRAZOLE (EC) 40 MG TAB PO SCH (06:24)
[2018-08-23] MEDS: ASPIRIN (EC) 81 MG TAB PO SCH (08:31)
[2018-08-23] MEDS: LINAGLIPTIN 5 MG TABLET PO SCH (08:31)
[2018-08-23] MEDS: NIFEdipine (XL) 90 MG TAB PO SCH (08:31)
[2018-08-23] MEDS: FINASTERIDE 5 MG TAB PO SCH (08:31)
[2018-08-23] MEDS: METHYLPREDNISOLONE 40 MG INJ IV SCH (08:31)
[2018-08-23] MEDS: ALBUTEROL HFA 8 GM INHALER INH SCH ×4 (08:32→23:52)
[2018-08-23] MEDS: HEPARIN 5,000 UNIT/1 ML VIAL SC SCH ×2 (08:39→22:32)
[2018-08-23] MEDS: ARFORMOTEROL TARTRATE 15MCG/2 ML AMP INH SCH ×2 (09:04→19:23)
[2018-08-23] MEDS: BUDESONIDE (NEB) 0.5MG/2ML AMP INH SCH ×2 (09:04→19:23)
--- NOTE | 2018-08-23 12:37 | PN ---
Date/Time of Note Date/Time of Note DATE: 08/23/18 TIME: 12:35 Assessment/Plan VTE Prophylaxis Risk score (from Ns)>0 risk: 5 SCD applied (from Ns): Yes Pharmacological prophylaxis: heparin Lines/Catheters IV Catheter Type (from Nrs): Peripheral IV Urinary Cath still in place: No Assessment/Plan Assessment/Plan 1. COPD exacerbation, improving on solumedrol, levaquin and nebs 2. Lactic acidosis, due to hypoxia/infection, and metformin, metformin stopped, IVF, improving 3. Sepsis, IVF, improved 4. Metastatic prostate cancer: Follow-up with oncology 5. Hypertension, controlled 6. Type 2 diabetes, on trajenta, ISS, stop metformin, add lantus 7. Dyslipidemia: Continue statin 8. BPH: Continue home med 9. DVT prophylaxis: heparin Result Diagram: 08/23/18 0551 08/23/18 0551 Results 24hrs Laboratory Tests Test 08/23/18 05:51 08/23/18 08:27 White Blood Count 8.4 # Red Blood Count 3.85 L Hemoglobin 10.1 L Hematocrit 32.1 L Mean Corpuscular Volume 83.4 Mean Corpuscular Hemoglobin 26.2 L Mean Corpuscular Hemoglobin Concent 31.5 L Red Cell Distribution Width 14.6 H Platelet Count 261 Mean Platelet Volume 9.9 Immature Granulocytes % 0.400 Neutrophils % 84.4 H Lymphocytes % 7.7 L Monocytes % 7.4 Eosinophils % 0.0 Basophils % 0.1 Nucleated Red Blood Cells % 0.0 Immature Granulocytes # 0.030 Neutrophils # 7.1 Lymphocytes # 0.7 L Monocytes # 0.6 Eosinophils # 0.0 Basophils # 0.0 Nucleated Red Blood Cells # 0.0 Sodium Level 143 Potassium Level 3.6 Chloride Level 107 Carbon Dioxide Level 28 Anion Gap 8 Blood Urea Nitrogen 22 H Creatinine 0.76 Est Glomerular Filtrat Rate mL/min Glucose Level 223 H Lactic Acid Level 3.3 *H Calcium Level 9.2 Magnesium Level 2.2 Total Bilirubin 0.3 Direct Bilirubin 0.00 Indirect Bilirubin 0.3 Aspartate Amino Transf (AST/SGOT) 14 L Alanine Aminotransferase (ALT/SGPT) 18 Alkaline Phosphatase 90 Total Protein 7.0 Albumin 3.9 Globulin 3.10 Albumin/Globulin Ratio 1.25 Bedside Glucose 205 Subjective 24 Hr Interval Summary Free Text/Dictation less shortness of breath, no wheezing Exam/Review of Systems Exam Vitals Vital Signs Date Temp Pulse Resp B/P (MAP) Pulse Ox O2 O2 Flow FiO2 Time Delivery Rate 08/23/18 97.9 65 151/67 98 Nasal 2.0 10:58 (95) Cannula 08/23/18 15 09:26 08/23/18 28 01:48 Intake and Output 08/22/18 08/22/18 08/23/18 1515:00 23:00 07:00 IntakeIntake Total 100 ml 1000 ml 300 ml OutputOutput Total 700 ml 1000 ml BalanceBalance 100 ml 300 ml -700 ml Constitutional: alert, oriented, well developed Psych: no complaints, nl mood/affect Head: normocephalic, atraumatic Eyes: nl conjunctiva, EOMI, nl lids ENMT: nl external ears & nose, nl lips & teeth, nl nasal mucosa & septum Neck: supple, non-tender Respiratory: clear to auscultation, diminished breath sounds Cardiovascular: regular rate and rhythm, nl pulses; No bruits, No diastolic murmur, No edema, No gallop, No irregular rhythm, No jugular venous distention (JVD), No murmurs/extra sounds, No rub, No systolic murmur, No S3, No S4, No other Gastrointestinal: soft, nl liver, spleen, non-tender Musculoskeletal: nl extremities to inspection Extremities: normal pulses; No calf tenderness, No cyanosis, No clubbing, No edema, No pitting pedal edema, No palpable cord, No tenderness, No other Neurological: [employer] II-XII intact, nl mental status, nl speech, nl strength Results Results 24hrs Laboratory Tests Test 08/23/18 05:51 08/23/18 08:27 White Blood Count 8.4 # Red Blood Count 3.85 L Hemoglobin 10.1 L Hematocrit 32.1 L Mean Corpuscular Volume 83.4 Mean Corpuscular Hemoglobin 26.2 L Mean Corpuscular Hemoglobin Concent 31.5 L Red Cell Distribution Width 14.6 H Platelet Count 261 Mean Platelet Volume 9.9 Immature Granulocytes % 0.400 Neutrophils % 84.4 H Lymphocytes % 7.7 L Monocytes % 7.4 Eosinophils % 0.0 Basophils % 0.1 Nucleated Red Blood Cells % 0.0 Immature Granulocytes # 0.030 Neutrophils # 7.1 Lymphocytes # 0.7 L Monocytes # 0.6 Eosinophils # 0.0 Basophils # 0.0 Nucleated Red Blood Cells # 0.0 Sodium Level 143 Potassium Level 3.6 Chloride Level 107 Carbon Dioxide Level 28 Anion Gap 8 Blood Urea Nitrogen 22 H Creatinine 0.76 Est Glomerular Filtrat Rate mL/min Glucose Level 223 H Lactic Acid Level 3.3 *H Calcium Level 9.2 Magnesium Level 2.2 Total Bilirubin 0.3 Direct Bilirubin 0.00 Indirect Bilirubin 0.3 Aspartate Amino Transf (AST/SGOT) 14 L Alanine Aminotransferase (ALT/SGPT) 18 Alkaline Phosphatase 90 Total Protein 7.0 Albumin 3.9 Globulin 3.10 Albumin/Globulin Ratio 1.25 Bedside Glucose 205 Medications Medication Current Medications Albuterol/ Ipratropium (Duoneb) 3 ml Q6H RESP THERAPY HHN Last administered on 08/23/18 09:03; Admin Dose 3 ML; Start 08/22/18 at 08:00 Albuterol/ Ipratropium (Duoneb) 3 ml Q2H RESP THERAPY PRN HHN sob; Start 08/22/18 at 06:00 IV Flush (NS 3 ml) 3 ml PER PROTOCOL IV ; Start 08/22/18 at 06:30 Ondansetron HCl (Zofran Inj) 4 mg Q6H PRN IV NAUSEA/VOMITING; Start 08/22/18 at 06:30 Acetaminophen (Tylenol Tab) 650 mg Q6H PRN PO .PAIN 1-3 OR TEMP; Start 08/22/18 at 06:30 Heparin Sodium (Porcine) (Heparin (5000 Units/1ml)) 5,000 unit Q12 SC Last administered on 08/23/18at 08:39; Admin Dose 5,000 UNIT; Start 08/22/18 at 09:00 Albuterol (Ventolin Hfa) 2 puff QID RESP THERAPY INH Last administered on 08/23/18 08:32; Admin Dose 2 PUFF; Start 08/22/18 at 08:00 Aspirin (Halfprin) 81 mg DAILY PO Last administered on 08/23/18 08:31; Admin Dose 81 MG; Start 08/22/18 at 09:00 Finasteride (Proscar) 5 mg DAILY PO Last administered on 08/23/18 08:31; Admin Dose 5 MG; Start 08/22/18 at 09:00 Nifedipine (Procardia Xl) 90 mg DAILY PO Last administered on 08/23/18 08:31; Admin Dose 90 MG; Start 08/22/18 at 09:00 Tamsulosin HCl (Flomax) 0.8 mg HS PO Last administered on 08/22/18 21:52; Admin Dose 0.8 MG; Start 08/22/18 at 21:00 Miscellaneous Information 1,000 mg DAILY PO ; Start 08/22/18 at 09:00; Status UNV Miscellaneous Information 145 mcg DAILY PO ; Start 08/22/18 at 09:00; Status UNV Atorvastatin Calcium (Lipitor) 20 mg DAILY@21 PO Last administered on 08/22/18 21:52; Admin Dose 20 MG; Start 08/22/18 at 21:00 Linagliptin (Tradjenta) 5 mg DAILY PO Last administered on 08/23/18 08:31; Admin Dose 5 MG; Start 08/22/18 at 09:00 Pantoprazole (Protonix Tab) 40 mg DAILY@06 PO Last administered on 08/23/18 06:24; Admin Dose 40 MG; Start 08/22/18 at 07:57 Arformoterol Tartrate (Brovana (Neb)) 2 ml BID RESP THERAPY INH Last administered on 08/23/18 09:04; Admin Dose 2 ML; Start 08/22/18 at 09:00 Budesonide (Pulmicort (Neb)) 0.5 mg BID RESP THERAPY INH Last administered on 08/23/18 09:04; Admin Dose 0.5 MG; Start 08/22/18 at 09:00 Potassium Chloride 10 meq/ Sodium Chloride 1,005 ml @ 100 mls/hr Q10H3M IV Last administered on 08/23/18 04:01; Admin Dose 100 MLS/HR; Start 08/22/18 at 16:00 Methylprednisolone Sodium Succinate (Solu-Medrol) 20 mg DAILY IV Last a dministered on 08/23/18 08:31; Admin Dose 20 MG; Start 08/22/18 at 21:00 Vancomycin HCl (Vanco Iv Per Pharmacy) VANCOMYCIN PER PHARMACY PER PROTOCOL XX ; Start 08/23/18 at 03:00 Vancomycin HCl 1.25 gm/Sodium Chloride 250 ml @ 83.333 mls/ hr Q24H IVPB ; Start 08/23/18 at 22:00 Insulin Glargine (Lantus) 10 units ONCE ONCE SC ; Start 08/23/18 at 12:30; Stop 08/23/18 at 12:31; Status UNV Insulin Aspart (Novolog Insulin Pen) NOVOLOG *MODERATE* ALGORITHM WITH MEALS BEDTIME SC ; Start 08/23/18 at 18:00; Status UNV Miscellaneous Information (* Miscellaneous Pharmacy Order) Discontinue all previ... ONCE ONCE XX ; Start 08/23/18 at 12:30; Stop 08/23/18 at 12:31; Status UNV MARLENE GREGORY MD August 23, 2018 12:37
[2018-08-23] MEDS ORDERED: GLUCOSE GEL 15 GRAM TUBE BUCCAL PRN (13:00)
[2018-08-23] MEDS ORDERED: GLUCOSE GEL 15 GRAM TUBE PO PRN ×2 (13:00)
[2018-08-23] MEDS ORDERED: DEXTROSE 50% 50 ML SYRINGE IV PRN ×2 (13:00)
[2018-08-23] MEDS ORDERED: GLUCAGON 1 MG INJ IM PRN (13:00)
[2018-08-23] MEDS ORDERED: INSULIN GLARGINE [LANTus] (100 UNITS/ML) SYG SC ONE (13:30)
[2018-08-23] MEDS: VANCOMYCIN 750 MG (PMX) 250 ML IVPB SCH (16:30)
[2018-08-23] MEDS: INSULIN ASPART [NOVOLOG] 3 ML PEN SC SCH ×2 (17:12→21:00)
[2018-08-23] MEDS ORDERED: VANCOMYCIN HCL 1.25 GM in SOD CHLORIDE 0.9% 250 ML IVPB SCH (22:00)
[2018-08-23] MEDS: TAMSULOSIN (SR) 0.4 MG CAP PO SCH (22:21)
[2018-08-23] MEDS: ATORVASTATIN 20 MG TAB PO SCH (22:21)
[2018-08-24] VITALS (9 sets, daily range): BP systolic 154–160; BP diastolic 70–74; PULSE 39–76; RESP 18–20
[2018-08-24] MEDS: ALBUTEROL/IPRATROPIUM (NEB) 3 ML AMP HHN SCH ×3 (01:34→14:09)
[2018-08-24] MEDS: VANCOMYCIN 750 MG (PMX) 250 ML IVPB SCH (04:35)
[2018-08-24] MEDS: POTASSIUM CHLORIDE 10 MEQ in SOD CHLORIDE 0.45% 1,000 ML IV SCH (04:36)
[2018-08-24] MEDS: PANTOPRAZOLE (EC) 40 MG TAB PO SCH (05:36)
[2018-08-24] MEDS: INSULIN ASPART [NOVOLOG] 3 ML PEN SC SCH ×2 (07:55→11:52)
[2018-08-24] MEDS: ALBUTEROL HFA 8 GM INHALER INH SCH ×2 (08:00→11:52)
[2018-08-24] MEDS: METHYLPREDNISOLONE 40 MG INJ IV SCH (08:39)
[2018-08-24] MEDS: LINAGLIPTIN 5 MG TABLET PO SCH (08:40)
[2018-08-24] MEDS: FINASTERIDE 5 MG TAB PO SCH (08:40)
[2018-08-24] MEDS: NIFEdipine (XL) 90 MG TAB PO SCH (08:40)
[2018-08-24] MEDS: ASPIRIN (EC) 81 MG TAB PO SCH (08:40)
[2018-08-24] MEDS: BUDESONIDE (NEB) 0.5MG/2ML AMP INH SCH (08:43)
[2018-08-24] MEDS: HEPARIN 5,000 UNIT/1 ML VIAL SC SCH (08:47)
[2018-08-24] MEDS: ARFORMOTEROL TARTRATE 15MCG/2 ML AMP INH SCH (10:00)
[2018-08-24] MEDS ORDERED: GLYB5TAB3 PO (13:40)
--- NOTE | 2018-08-24 13:47 | DS ---
Date/Time of Note Date/Time of Note DATE: 08/24/18 TIME: 13:40 Discharge Summary Admission/Discharge Info Admit Date/Time August 22, 2018 at 04:10 Discharge Date/Time Discharge Diagnosis 1. COPD exacerbation, improved, follow up with PCP 2. Lactic acidosis, due to hypoxia/infection, and metformin, stop metformin 3. Sepsis, resolved 4. Metastatic prostate cancer: Follow-up with oncology 5. Hypertension, controlled 6. Type 2 diabetes, on januvia, glyburide, stop metformin 7. Dyslipidemia: Continue statin 8. BPH: Continue home med Patient Condition: Stable Hospital Course This is a 73-year-old male with a history of metastatic prostate cancer, emphysema, pulmonary nodules (likely representing metastasis). Patient presented to ER complaining of shortness of breath which started a few hours prior to arrival to the ER. Shortness of breath however has been progressively getting worse for past several days. Reported cough which occasionally has been productive. Patient was admitted here about 3 months ago for shortness of breath and cough, which was thought to be from a viral bronchitis and emphysema. Patient however has lung nodules, likely representing metastasis as well. When he presented to ER, he was tachycardic, WBC 12.5, lactic acid 2.1, which has been rising. Chest x-ray without acute findings. For COPD exacerbation, he is treated with neb, solumedrol, and levaquin, symptoms improved. He will be on tapering dosage of prednisone. He has lactic acidosis that is considered combil=nation of hypoxia and metformin. Metformin is stopped, lactic acidosis is improved. He is instructed to stop metformin and follow up with PCP. Home Meds Active Scripts Glyburide* (Glyburide*) 5 Mg Tablet, 5 MG PO BID, #60 TAB Prov:MARLENE GREGORY MD 08/24/18 Reported Medications Tamsulosin Hcl* (Tamsulosin Hcl*) 0.4 Mg Cap.er.24h, 0.8 MG PO HS, CAP 06/01/18 Finasteride* (Finasteride*) 5 Mg Tablet, 5 MG PO DAILY, TAB 06/01/18 Ergocalciferol (Vitamin D2) (VITAMIN D2) 50,000 Unit Capsule, 19846 UNIT PO Q7D, CAP 06/01/18 Linaclotide (LINZESS) 145 Mcg Capsule, 145 MCG PO DAILY, #30 CAP 06/01/18 Abiraterone Acetate (Zytiga) 500 Mg Tablet, 1000 MG PO DAILY, TAB 06/01/18 Prednisone* (Prednisone*) 5 Mg Tab, 5 MG PO BID, TAB 06/01/18 Nifedipine* (Nifedipine ER*) 90 Mg Tablet.er, 90 MG PO DAILY, TAB 06/01/18 Dexlansoprazole (Dexilant) 60 Mg Cap.mp, 60 MG PO DAILY, #30 CAP 06/01/18 Hydrochlorothiazide* (Hydrochlorothiazide*) 25 Mg Tab, 25 MG PO DAILY, #30 TAB 06/01/18 Rosuvastatin Calcium* (Crestor*) 5 Mg Tablet, 5 MG PO QHS, #30 TAB 06/01/18 Sitagliptin* (Januvia*) 100 Mg Tablet, 100 MG PO DAILY, #30 TAB 06/01/18 Lisinopril* (Lisinopril*) 20 Mg Tablet, 20 MG PO DAILY, #30 TAB 06/01/18 Albuterol Sulfate* (Ventolin HFA*) 18 Gm Hfa.aer.ad, 2 PUFF INHALATION TID, #1 INHALER 06/01/18 Aspirin* (Aspirin* EC) 81 Mg Tablet.dr, 81 MG PO DAILY, TAB 06/01/18 Budesonide-Formoterol Fumarate* (Symbicort*) 160-4.5 Hfa.aer.ad, 2 PUFF INHALATION BID, #1 EACH 06/01/18 Discontinued Reported Medications [Glglyburide/Metf] 5-500 MG No Conflict Check, 1 TAB PO BID GLYBURIDE/METFORMIN HCL 5-500MG BID 06/01/18 Follow-up Plan PCP in one week Primary Care Provider Supriya Tee Pending Labs Laboratory Tests Test 08/23/18 14:03 08/23/18 17:07 08/23/18 22:20 08/24/18 05:31 Bedside 275 284 159 Glucose mg/dL (70-220) mg/dL (70-220) mg/dL (70-220) White Blood 9.2 Count 10^3/ul (4.8-1 0.8) Red Blood 3.90 Count 10^6/ul (4.70- 6.10) Hemoglobin 10.1 g/dl (14.0-18. 0) Hematocrit 32.4 % (42.0-52.0) Mean 83.1 Corpuscular fl (82.0-101.0 Volume ) Mean 25.9 Corpuscular pg (29.0-33.0) Hemoglobin Mean 31.2 Corpuscular g/dl (32.0-37. Hemoglobin Conc 0) ent Red Cell 14.6 Distribution % (11.5-14.5) Width Platelet Count 245 10^3/UL (140-4 15) Mean Platelet 9.8 Volume fl (7.4-10.4) Immature 0.800 Granulocytes % % (0.001-0.429 ) Neutrophils % 74.6 % (39.0-77.0) Lymphocytes % 14.6 % (15.0-51.0) Monocytes % 8.1 % (0.0-11.0) Eosinophils % 1.5 % (0.0-7.0) Basophils % 0.4 % (0.0-2.0) Nucleated Red 0.0 Blood Cells % /100WBC (0.0-0 .0) Immature 0.070 Granulocytes # 10^3/ul (0.0-0 .031) Neutrophils # 6.9 10^3/ul (1.6-7 .5) Lymphocytes # 1.4 10^3/ul (0.8-2 .9) Monocytes # 0.8 10^3/ul (0.3-0 .9) Eosinophils # 0.1 10^3/ul (0.0-0 .5) Basophils # 0.0 10^3/ul (0.0-0 .1) Nucleated Red 0.0 Blood Cells # 10^3/ul (0.0-0 .0) Sodium Level 144 mmol/L (135-14 4) Potassium 3.6 Level mmol/L (3.5-5. 1) Chloride Level 109 mmol/L (97-110 ) Carbon Dioxide 26 Level mmol/L (21-31) Anion Gap 9 (5-13) Blood Urea 20 Nitrogen mg/dl (7-20) Creatinine 0.68 mg/dl (0.61-1. 24) Est Glomerular mL/min (>60) Filtrat Rate mL/min Glucose Level 120 mg/dl (70-220) Lactic Acid 2.4 Level mmol/L (0.5-2. 0) Calcium Level 9.1 mg/dl (8.4-10. 2) Test 08/24/18 07:54 08/24/18 08:49 08/24/18 11:49 Bedside 123 162 200 Glucose mg/dL (70-220) mg/dL (70-220) mg/dL (70-220) Microbiology Date/Time Source Procedure Growth Status 08/23/18 14:00 Sputum Gram Stain Pending Resulted 08/23/18 14:00 Respiratory Culture - Preliminary Normal Resulted Respiratory Jina MARLENE GREGORY MD August 24, 2018 13:47
== END 2018-08-24 15:07 | disposition home or self-care (01) | DRG 872 ==
LOC: E/R 02:37 → 6WM 04:10
PROVIDERS: ADMIT Internal Medicine; ATTEND Internal Medicine
PROC: 5A09357 Assistance with Respiratory Ventilation, Less than 24 Consecutive Hours, Continuous Positive Airway Pressure (ICD-10-PCS; principal; 2018-08-22)
PROC: 4A033R1 Measurement of Arterial Saturation, Peripheral, Percutaneous Approach (ICD-10-PCS; 2018-08-22)
DX: A41.9 Sepsis, unspecified organism (principal); J44.1 Chronic obstructive pulmonary disease with (acute) exacerbation; C78.00 Secondary malignant neoplasm of unspecified lung; E87.2 Acidosis; J06.9 Acute upper respiratory infection, unspecified; J40 Bronchitis, not specified as acute or chronic; C61 Malignant neoplasm of prostate; E11.9 Type 2 diabetes mellitus without complications; E78.5 Hyperlipidemia, unspecified; I10 Essential (primary) hypertension; Z79.84 Long term (current) use of oral hypoglycemic drugs
CPT/HCPCS: 36415; 36600; 71045; 80048; 80053; 82803; 82962; 83605; 83735; 83880; 84484; 85025; 85610; 85730; 87070; 87086; 93005; 94640; 94644; 94660; 94664; 96365; 96375; J0692; J1644; J1815; J1956; J2920; J2930; J3370; J3480; J7050; J7512

== ENCOUNTER 2018-10-22 16:11 | Emergency (ER) | payer MEDICARE, OTHER ==
[~2018-10-22] VITALS: Ht 165.1 cm; Wt 89.8 kg
[~2018-10-22 16:11] MED LIST changes: +GLYB5TAB3 PO; -[UNRECOGNIZED DRUG - MIXTURE] PO
[2018-10-22 16:14] VITALS: Ht 165.1 cm; Wt 89.8 kg
--- NOTE | 2018-10-22 16:26 | ERD ---
ER Documentation Chief Complaint Chief Complaint left eye diplopia x2 days w/ headache HPI The patient is a 73-year-old male, presenting to the ER because of acute left eye double vision for 2 days with headache. He was seen by gluten settling tender who sent him to the ER for further evaluation. He stated that the diplopia is horizontal and only with left eye he denies similar symptoms previously, denies any trauma, denies. Neck pain, chest pain, dyspnea, abdominal pain, vomiting, dysuria, diarrhea. He does not smoke nor drink Past medical history: Metastatic prostate cancer, hypertension, dyslipidemia, asthma, COPD, history of CVA ROS All systems reviewed and are negative except as per history of present illness. Medications Home Meds Reported Medications Insulin Glargine,Hum.rec.anlog (Basaglar Kwikpen U-100) 100 Unit/1 Ml Insuln.pen, 10 UNIT SC QHS, EA 10/22/18 Prednisone* (Prednisone*) 10 Mg Tab, 10 MG PO, TAB START DATE 10/20/18, TAKE 2TAB-BID FOR 5 DAYS THEN 2TAB-DAILY FOR 5 DAYS AND 1TAB-DAILY FOR 5 DAYS. 10/22/18 Linaclotide (Linzess) 72 Mcg Capsule, 72 MCG PO DAILY, CAP 10/22/18 Fluticasone/Umeclidin/Vilanter (Trelegy Ellipta 100-62.5-25) 1 Each Blst.w.dev, 1 EACH IH BID 10/22/18 Rosuvastatin Calcium* (Crestor*) 10 Mg Tablet, 10 MG PO QHS, #30 TAB 10/22/18 Salmeterol Xinaf/Fluticasone* (Advair*) 250-50 Diskus Inhaler, 1 INH INHALATION BID, #1 INHALER 10/22/18 Glipizide* (Glipizide*) 5 Mg Tablet, 5 MG PO BID, TAB 10/22/18 Tamsulosin Hcl* (Tamsulosin Hcl*) 0.4 Mg Cap.er.24h, 0.8 MG PO HS, CAP 06/01/18 Finasteride* (Finasteride*) 5 Mg Tablet, 5 MG PO DAILY, TAB 06/01/18 Abiraterone Acetate (Zytiga) 500 Mg Tablet, 1000 MG PO DAILY, TAB 06/01/18 Nifedipine* (Nifedipine ER*) 90 Mg Tablet.er, 90 MG PO DAILY, TAB 06/01/18 Dexlansoprazole (Dexilant) 60 Mg Cap.mp, 60 MG PO DAILY, #30 CAP 06/01/18 Hydrochlorothiazide* (Hydrochlorothiazide*) 25 Mg Tab, 25 MG PO DAILY, #30 TAB 06/01/18 Sitagliptin* (Januvia*) 100 Mg Tablet, 100 MG PO DAILY, #30 TAB 06/01/18 Lisinopril* (Lisinopril*) 20 Mg Tablet, 20 MG PO DAILY, #30 TAB 06/01/18 Albuterol Sulfate* (Ventolin HFA*) 18 Gm Hfa.aer.ad, 2 PUFF INHALATION TID, #1 INHALER 06/01/18 Discontinued Reported Medications Ergocalciferol (Vitamin D2) (VITAMIN D2) 50,000 Unit Capsule, 50494 UNIT PO Q7D, CAP 06/01/18 Linaclotide (LINZESS) 145 Mcg Capsule, 145 MCG PO DAILY, #30 CAP 06/01/18 Prednisone* (Prednisone*) 5 Mg Tab, 5 MG PO BID, TAB 06/01/18 Rosuvastatin Calcium* (Crestor*) 5 Mg Tablet, 5 MG PO QHS, #30 TAB 06/01/18 Aspirin* (Aspirin* EC) 81 Mg Tablet.dr, 81 MG PO DAILY, TAB 06/01/18 Budesonide-Formoterol Fumarate* (Symbicort*) 160-4.5 Hfa.aer.ad, 2 PUFF INHA LATION BID, #1 EACH 06/01/18 Discontinued Scripts Glyburide* (Glyburide*) 5 Mg Tablet, 5 MG PO BID, #60 TAB Prov:MARLENE GREGORY MD 08/24/18 Allergies Allergies: Coded Allergies: No Known Allergy (Unverified , 10/22/18) PMhx/Soc History of Surgery: Yes (GASTRIC SX, CATARACT SX) Anesthesia Reaction: No Hx Neurological Disorder: No Hx Respiratory Disorders: Yes (ASTHMA, COPD) Hx Cardiac Disorders: Yes (HTN, HYPERLIPIDEMIA, STROKE) Hx Psychiatric Problems: No Hx Miscellaneous Medical Probl: No Hx Alcohol Use: No Hx Substance Use: No Hx Tobacco Use: Yes Physical Exam Vitals Vital Signs Date Temp Pulse Resp B/P (MAP) Pulse Ox O2 O2 Flow FiO2 Time Delivery Rate 10/22/18 56 14 140/68 97 Room Air 18:30 (92) 10/22/18 98.1 77 18 135/65 98 16:14 (88) Physical Exam Const: No acute distress. Head: Atraumatic. Eyes: Normal Conjunctiva. ENT: Normal External Ears, Nose and Mouth. Mild left ptosis, no nystagmus, extraocular motor intact Neck: Full range of motion. No meningismus. Resp: Clear to auscultation bilaterally. Cardio: Regular rate and rhythm. Abd: Soft, non distended, normal bowel sounds, non tender. Skin: No petechiae or rashes. Back: No midline or flank tenderness. Ext: No cyanosis, or edema. Neur: Awake and alert. No focal deficit Psych: Normal Mood and Affect. Result Diagram: 10/22/187 10/22/18 1657 Results 24 hrs Laboratory Tests Test 10/22/18 16:57 White Blood Count 10.1 10^3/ul Red Blood Count 4.31 10^6/ul Hemoglobin 11.4 g/dl Hematocrit 34.9 % Mean Corpuscular Volume 81.0 fl Mean Corpuscular Hemoglobin 26.5 pg Mean Corpuscular Hemoglobin Concent 32.7 g/dl Red Cell Distribution Width 15.9 % Platelet Count 270 10^3/UL Mean Platelet Volume 9.5 fl Immature Granulocytes % 0.800 % Neutrophils % 88.2 % Lymphocytes % 5.8 % Monocytes % 4.9 % Eosinophils % 0.1 % Basophils % 0.2 % Nucleated Red Blood Cells % 0.0 /100WBC Immature Granulocytes # 0.080 10^3/ul Neutrophils # 8.9 10^3/ul Lymphocytes # 0.6 10^3/ul Monocytes # 0.5 10^3/ul Eosinophils # 0.0 10^3/ul Basophils # 0.0 10^3/ul Nucleated Red Blood Cells # 0.0 10^3/ul Prothrombin Time 12.6 Sec Prothrombin Time Ratio 1.0 INR International Normalized Ratio 0.93 Activated Partial Thromboplast Time 27.3 Sec Sodium Level 142 mmol/L Potassium Level 3.7 mmol/L Chloride Level 107 mmol/L Carbon Dioxide Level 26 mmol/L Anion Gap 9 Blood Urea Nitrogen 31 mg/dl Creatinine 0.97 mg/dl Est Glomerular Filtrat Rate mL/min mL/min Glucose Level 220 mg/dl Calcium Level 9.3 mg/dl Current Medications Medications Dose Sig/Jarod Start Time Status Last (Trade) Ordered Route PRN Stop Time Admin Dose Reason Admin IV Flush 10 ml STK-MED 10/22/18 DC 10/22/18 (NS 10 ml) ONCE .ROUTE 17:45 10/22/18 18:07 17:46 Sodium 100 ml @ ud STK-MED 10/22/18 DC 10/22/18 Chloride ONCE .ROUTE 17:45 10/22/18 18:07 17:46 Iohexol 100 ml @ ud STK-MED 10/22/18 DC 10/22/18 ONCE .ROUTE 17:45 10/22/18 18:07 17:46 Sodium 500 ml @ Q1H ONCE 10/22/18 DC 10/22/18 Chloride 500 mls/hr IV 18:00 10/22/18 18:42 18:59 Procedures/MDM PROCEDURE: CT Brain without contrast. CLINICAL INDICATION: 73-year-old. Headache. Left eye pain. Possible aneurysm. TECHNIQUE: A CT of the brain was performed on a multi-slice CT scanner utilizing axial imaging from the skull base through the vertex without IV contrast. Multiplanar reformatted images were made. Images were reviewed on a PACS works tation. One or more the following dose reduction techniques were utilized: Automated exposure control, adjustment of mA/ or kV according to patient's size, or use of iterative reconstruction technique. DICOM images are available for review. The CTDIvol is 77.97 mGy and the DLP is 872.07 mGycm. COMPARISON: None FINDINGS: Cerebral volume loss with cortical sulcal prominence and enlargement of the l ateral third ventricles. Old infarcts involving the right basil ganglia with ex vacuo dilatation of the anterior body and frontal horn of the right lateral ventricle. Old lacunar infarct lateral left thalamus. No acute intra-axial or extra-axial hemorrhage. No subdural collection. Patchy areas of decreased attenuation in the left and right frontal periventricular and deep white matter and the right frontal parietal blackwell radiata and centrum semiovale. No hyperdense MCA or basilar artery sign. Calcified plaque left and right carotid siphons and intradural vertebral arteries. Blastic changes are present in the clivus. Large osteoma with mixed attenuation in the right frontal sinus. Blastic disease may involve the osteoma. Chronic right sphenoid sinus disease. Mastoid air cells are clear. IMPRESSION: 1. Blastic metastatic disease. 2. Old right basal ganglia infarcts. 3. Chronic microvascular ischemic changes. 4. Age-appropriate involutional change. PROCEDURE: CTA head and neck CLINICAL INDICATION: 73-year-old. Headache and pain. Evaluate for aneurysm. TECHNIQUE: The study was performed utilizing a multi-slice CT scanner. Pre and postcontrast high-resolution axial sections were obtained through the head and neck. Coronal and sagittal as well as maximal intensity projection reformations were obtained. 3-D images were made. NASCET criteria were utilized in measuring stenoses. One or more the following dose reduction techniques were utilized: Automated exposure control, adjustment of the mA/ or kV according to patient's size, or use of iterative reconstruction technique. DICOM images are available for review. DICOM images are available for review. The images were reviewed on a PACS workstation. The total CTDIvol is 60.76 mGy and the DLP is 690.14 mGy-cm. CONTRAST: 90 cc Omnipaque 350 IV COMPARISON: CT brain 10/22/2018 FINDINGS: CTA NECK: Aortic arch and great vessels: No arch aneurysm or dissection flap. The innominate, left common carotid and left subclavian arteries have separate origins from the aortic arch. No hemodynamically significant origin stenosis. Normal right common carotid artery origin. Anterior circulation: Contrast opacifies the left and right common, internal and external carotid arteries. No hemodynamically significant stenosis at the level of the carotid bifurcations or involving the internal carotid arteries. Retropharyngeal left and right internal carotid arteries. Right internal carotid artery measures 4.4 ml. Left internal carotid artery measures it is 4.7 mm. Posterior circulation: Contrast opacifies the left and right vertebral arteries. The right vertebral artery is dominant. Scattered area intermittent areas of stenosis involving the mid and distal cervical left vertebral artery. Very attenuated distal cervical left vertebral artery at the C1 level with no significant contrast opacification of the left vertebral artery 1 cm proximal to the site of dural penetration. Additional findings: Blastic metastatic disease is identified in the clivus, the C2, C3, C4 and T3 vertebrae, the medial right clavicle and the thyroid and cricoid cartilage. Large osteoma versus blastic process in the right frontal sinus. CTA BRAIN: Posterior circulation: Contrast opacifies the intradural right vertebral artery. No contrast desiccation of new the proximal and mid intradural left vertebral artery. Calcified plaque identified in the proximal intradural left vertebral artery. Distal intradural left vertebral artery specified due to contrast refluxing at the level of the basilar artery origin. 5 mm saccular aneurysm proximal basilar artery. No basilar artery stenosis or intraluminal filling defect. No basilar tip aneurysm. Contrast opacifies the left and right superior cerebellar and posterior cerebral arteries. Anterior circulation: Contrast opacifies the distal left and right internal carotid arteries, the anterior and middle cerebral arteries, the opercular and sylvian branches arising from the left and right middle cerebral arteries. The anterior communicating artery is visualized. Posterior communicating arteries a re not identified. No hemodynamically significant stenosis demonstrated. No intraluminal filling defect or abrupt vessel cutoff. No [place] of [place] aneurysm. IMPRESSION: 1. Attenuated nondominant cervical left vertebral artery cephalad to the C1 level. No significant flow identified within the left vertebral artery proximally 1 cm proximal to the site of dural penetration. This could be acute or chronic, due to a recent or remote dissection. 2. No contrast opacification of the proximal and mid intradural left vertebral artery. Distal intradural left vertebral artery contains contrast due to reflux across the basilar artery origin. 3. Blastic metastatic disease involving the cervical spine, clivus, upper thoracic spine, medial right clavicle, cricoid and thyroid cartilages. Critical results discussed with Dr. Harrison at [facility] [place] ED by the undersigned at 1918 hours [place] time. RPTAT: [facility] Electronically Signed By: Armando Heredia M.d 10/22/2018 7:32:13 PM Consultation: I discussed the patient with the stroke neurologist Dr. Be at 8 PM, who was made aware of the lab, the treatment, the CT and a CTA finding, he accepted the patient MEDICAL MAKING DECISION: The patient is a 73-year-old male, presenting with acute binocular horizontal diplopia, acute brain aneurysm, suspicious for vertebral artery dissection, blastic metastatic disease. He was treated with normal saline 400 mL IV for acute dehydration. Visual acuity reviewed The differential diagnoses considered include but are not limited to 3rd nerve palsy, 6th nerve palsy, intracranial hemorrhage, vertebral artery dissection Critical Care: Time: 35 minutes excluding all billable procedures. Treatments/Evaluations: Close monitoring and treatment of unstable vital signs, cardiorespiratory, and neurologic status, while maintaining tight balance of fluid, respiratory, and cardiac interventions. Departure Diagnosis: Primary Impression: Brain aneurysm Additional Impressions: Vertebral artery dissection Monocular diplopia of left eye Metastatic disease Dehydration Anemia Condition: Critical Comments I discussed the findings with the patient and spouse. He will be transferred via ambulance to [facility] Disclaimer: Inadvertent spelling and grammatical errors are likely due to EHR/dictation software use and do not reflect on the overall quality of patient care. Also, please note that the electronic time recorded on this note does not necessarily reflect the actual time of the patient encounter. JOHNY HARRISON MD Oct 22, 2018 16:26
[2018-10-22] MEDS ORDERED: GLIP5TAB13 PO (17:18)
[2018-10-22] MEDS ORDERED: ADV25050 INHALATION (17:19)
[2018-10-22] MEDS ORDERED: RSV10T PO (17:20)
[2018-10-22] MEDS ORDERED: FLUT1BLS3 IH (17:21)
[2018-10-22] MEDS ORDERED: LINA72CA PO (17:22)
[2018-10-22] MEDS ORDERED: SOD CHLORIDE 0.9% 100 ML ONE (17:45)
[2018-10-22] MEDS ORDERED: IOHEXOL 100 ML ONE (17:45)
[2018-10-22] MEDS ORDERED: PRED10TA PO (17:49)
[2018-10-22] MEDS ORDERED: INSU100I33 SC (17:49)
[2018-10-22] MEDS ORDERED: SOD CHLORIDE 0.9% 500 ML IV ONE (18:00)
[2018-10-22 21:15] VITALS: BP 151/78; PULSE 58; RESP 20
== END 2018-10-22 21:15 | disposition short-term general hospital (02) ==
LOC: E/R 16:11
DX: I67.1 Cerebral aneurysm, nonruptured (principal); I10 Essential (primary) hypertension; J44.9 Chronic obstructive pulmonary disease, unspecified; I77.74 Dissection of vertebral artery; H53.2 Diplopia; E86.0 Dehydration; D64.9 Anemia, unspecified; C79.9 Secondary malignant neoplasm of unspecified site; Z86.73 Personal history of transient ischemic attack (TIA), and cerebral infarction without residual deficits; Z85.46 Personal history of malignant neoplasm of prostate; Z79.4 Long term (current) use of insulin; Z87.891 Personal history of nicotine dependence
CPT/HCPCS: 36415; 70450; 70496; 70498; 80048; 85025; 85610; 85730; 99285; J7040; Q9967

== ENCOUNTER 2018-12-04 03:27 | Inpatient (IN) | payer MEDICARE, OTHER ==
[~2018-12-04] VITALS: Ht 180.3 cm; Wt 89.7 kg
[~2018-12-04 03:27] MED LIST changes: +ADV25050 INHALATION; -ASPI-817 PO; -BUDE6HFA INHALATION; -CRES5 PO; +CYAN100080 PO; +FLUT1BLS3 IH; +GLIP5TAB13 PO; -GLYB5TAB3 PO; +INSU100I33 SC; -LINA145C PO; +LINA72CA PO; +PRED10TA PO; -PRED5TAB PO; +RSV10T PO
[2018-12-04] MEDS ORDERED: ALBUTEROL 0.5% (NEB) 2.5 MG/0.5 ML AMP INH STA (03:31)
[2018-12-04] MEDS ORDERED: IPRATROPIUM (NEB) 0.5 MG/2.5 ML AMP INH STA (03:31)
[2018-12-04] MEDS ORDERED: METHYLPREDNISOLONE 125 MG INJ IV STA (03:31)
[2018-12-04] MEDS ORDERED: ACETAMINOPHEN 325 MG TAB PO PRN (05:30)
[2018-12-04] MEDS ORDERED: ONDANSETRON 4 MG INJ IV PRN ×2 (05:30→22:00)
[2018-12-04] MEDS ORDERED: NITROGLYCERIN 2% 1 GM OINT PKT TD ONE (05:30)
[2018-12-04] MEDS: METHYLPREDNISOLONE 40 MG INJ IV SCH ×3 (06:45→22:21)
[2018-12-04] MEDS ORDERED: SUCCINYLCHOLINE CHLORIDE 100 MG/5 ML SYG IV ONE (07:00)
[2018-12-04] MEDS ORDERED: ETOMIDATE 20 MG INJ ONE (07:00)
[2018-12-04] MEDS ORDERED: ROCURONIUM 50 MG INJ ONE ×2 (07:00→20:59)
[2018-12-04] MEDS ORDERED: ENALAPRILAT 1.25 MG INJ IV ONE (07:30)
[2018-12-04] MEDS ORDERED: ENALAPRILAT 1.25 MG INJ IV PRN (07:30)
[2018-12-04] MEDS ORDERED: LORAZEPAM 2 MG INJ IV ONE (07:30)
[2018-12-04] MEDS: INSULIN ASPART [NOVOLOG] 3 ML PEN SC SCH ×4 (08:00→22:39)
[2018-12-04] MEDS ORDERED: GLUCOSE GEL 15 GRAM TUBE PO PRN ×2 (09:00)
[2018-12-04] MEDS ORDERED: ENOXAPARIN 40 MG/0.4 ML SYG SC SCH (09:00)
[2018-12-04] MEDS ORDERED: GLUCOSE GEL 15 GRAM TUBE BUCCAL PRN (09:00)
[2018-12-04] MEDS: LISINOPRIL 20 MG TAB PO SCH (09:00)
[2018-12-04] MEDS: NIFEdipine (XL) 90 MG TAB PO SCH (09:00)
[2018-12-04] MEDS ORDERED: DEXTROSE 50% 50 ML SYRINGE IV PRN ×2 (09:00)
[2018-12-04] MEDS ORDERED: GLUCAGON 1 MG INJ IM PRN (09:00)
[2018-12-04] MEDS: FINASTERIDE 5 MG TAB PO SCH (09:00)
[2018-12-04] MEDS: HYDROCHLOROTHIAZIDE 25 MG TAB PO SCH (09:00)
[2018-12-04] MEDS ORDERED: RACEPINEPHRINE 2.25%(NEB) 0.5 ML AMP HHN ONE (09:00)
[2018-12-04] MEDS ORDERED: SOD CHLORIDE 0.9% 100 ML ONE (09:26)
[2018-12-04] MEDS ORDERED: IOHEXOL 300MG/ML 150 ML BTL ONE (09:26)
[2018-12-04] MEDS ORDERED: MIDAZOLAM (DRIP) 50 mg/50 mL 50 ML IV STA (09:29)
[2018-12-04] MEDS ORDERED: FENTAnyl 50 MCG/ML VIAL IV PRN ×2 (09:30→22:00)
[2018-12-04] MEDS ORDERED: LIDOCAINE 2%/EPI MPF (SDV) 20 ML VIAL INJ ONE (09:30)
[2018-12-04] MEDS: IPRATROPIUM (NEB) 0.5 MG/2.5 ML AMP HHN SCH ×3 (10:08→15:07)
[2018-12-04] MEDS: ACETYLCYSTEINE 20% 4 ML VIAL NEB SCH ×3 (10:09→20:00)
[2018-12-04] MEDS: LEVALBUTEROL (NEB) 1.25 MG/0.5 ML AMP HHN SCH ×3 (10:09→15:07)
[2018-12-04] MEDS: LEVOFLOXACIN 750MG/D5W (PMX) 150 ML IVPB SCH (13:44)
[2018-12-04] MEDS ORDERED: MIDAZOLAM 1 MG/ML 2 ML INJ ONE (17:35)
[2018-12-04] MEDS ORDERED: MIDAZOLAM 1 MG/ML 2 ML INJ IV ONE (18:00)
[2018-12-04] MEDS ORDERED: FENTAnyl 50 MCG/ML VIAL IV ONE (18:00)
[2018-12-04] MEDS ORDERED: PROPOFOL 100 ML IV STA (18:08)
[2018-12-04] MEDS ORDERED: LIDOCAINE 1%/EPI 30 ML INJ ONE (19:55)
[2018-12-04] MEDS ORDERED: TAMSULOSIN (SR) 0.4 MG CAP PO SCH (21:00)
[2018-12-04] MEDS ORDERED: NON-FORMULARY/PATIENT OWN MED (Rosuvastatin Calcium* (Crestor*) 10 MG) PO SCH (21:00)
[2018-12-04] MEDS ORDERED: INSULIN GLARGINE [LANtus] 3 ML PEN SC SCH (21:00)
[2018-12-04] MEDS ORDERED: SEVOFLURANE 15 MIN ONE (21:00)
[2018-12-04] MEDS ORDERED: GLYCOPYRROLATE 0.4 MG INJ ONE (21:14)
[2018-12-04] MEDS ORDERED: NEOSTIGMINE 3 MG/3 ML SYRINGE ONE (21:14)
[2018-12-04] MEDS ORDERED: FENTAnyl 50 MCG/ML VIAL ONE (21:14)
[2018-12-04 21:30] VITALS: RESP 22
[2018-12-04] MEDS ORDERED: PANTOPRAZOLE 40 MG INJ IV ONE (21:30)
[2018-12-04 22:00] VITALS: BP 158/90; PULSE 96; RESP 26
[2018-12-04] MEDS ORDERED: HYDROmorphONE 0.5 MG/0.5 ML SYG IV PRN (22:00)
[2018-12-04] MEDS ORDERED: HYDROmorphONE 1 MG/ML SYG ONE (22:26)
[2018-12-04] MEDS ORDERED: HYDROmorphONE 1 MG/ML SYG IV ONE (22:30)
[2018-12-04] MEDS: ATORVASTATIN 40 MG TAB PO SCH (22:39)
[2018-12-04 23:00] VITALS: BP 141/83; RESP 9
[2018-12-04] MEDS: FENTAnyl (DRIP) 1000 mcg/100mL 100 ML IV SCH (23:35)
[2018-12-04 23:44] VITALS: RESP 22
[2018-12-05] VITALS (27 sets, daily range): BP systolic 110–150; BP diastolic 59–84; PULSE 59–93; RESP 20–27; Ht 180.3 cm; Wt 89.7 kg
[2018-12-05] MEDS: ACETYLCYSTEINE 20% 4 ML VIAL NEB SCH ×4 (01:33→19:00)
[2018-12-05] MEDS: IPRATROPIUM (HFA) 12.9 GM INHALER INH SCH ×4 (01:34→19:00)
[2018-12-05] MEDS: LEVALBUTEROL (HFA) 15 GM INHALER INH SCH ×4 (01:34→19:00)
[2018-12-05] MEDS ORDERED: ACCU-CHEK XX SCH (02:00)
[2018-12-05] MEDS: METHYLPREDNISOLONE 40 MG INJ IV SCH ×3 (05:52→20:53)
[2018-12-05] MEDS: MIDAZOLAM (DRIP) 50 mg/50 mL 50 ML IV SCH ×2 (05:53→16:47)
[2018-12-05] MEDS ORDERED: PANTOPRAZOLE 40 MG INJ IV SCH (06:00)
[2018-12-05] MEDS: INSULIN ASPART [NOVOLOG] 3 ML PEN SC SCH ×4 (08:44→22:08)
[2018-12-05] MEDS: FINASTERIDE 5 MG TAB PO SCH (08:56)
[2018-12-05] MEDS: LEVOFLOXACIN 750MG/D5W (PMX) 150 ML IVPB SCH (08:56)
[2018-12-05] MEDS: NIFEdipine (XL) 90 MG TAB PO SCH (08:56)
[2018-12-05] MEDS: LISINOPRIL 20 MG TAB PO SCH (08:57)
[2018-12-05] MEDS: HYDROCHLOROTHIAZIDE 25 MG TAB PO SCH (08:57)
[2018-12-05] MEDS ORDERED: ONDANSETRON 4 MG INJ IV PRN (11:30)
[2018-12-05] MEDS: FENTAnyl (DRIP) 1000 mcg/100mL 100 ML IV SCH (14:22)
[2018-12-05] MEDS ORDERED: SOD CHLORIDE 0.9% 500 ML IV ONE (17:30)
[2018-12-05] MEDS: D5W-0.45 NACL + KCL 20 MEQ 1,000 ML IV SCH (17:51)
[2018-12-05] MEDS: ATORVASTATIN 40 MG TAB PO SCH (20:52)
[2018-12-05] MEDS: INSULIN GLARGINE [LANTus] (100 UNITS/ML) SYG SC SCH (20:58)
[2018-12-06] VITALS (32 sets, daily range): BP systolic 123–153; BP diastolic 61–91; PULSE 55–97; RESP 10–24
[2018-12-06] MEDS: ACETYLCYSTEINE 20% 4 ML VIAL NEB SCH ×4 (01:00→19:00)
[2018-12-06] MEDS: IPRATROPIUM (HFA) 12.9 GM INHALER INH SCH ×4 (01:00→19:00)
[2018-12-06] MEDS: LEVALBUTEROL (HFA) 15 GM INHALER INH SCH ×4 (01:00→19:00)
[2018-12-06] MEDS: INSULIN ASPART [NOVOLOG] 3 ML PEN SC SCH ×6 (01:14→20:55)
[2018-12-06] MEDS: MIDAZOLAM (DRIP) 50 mg/50 mL 50 ML IV SCH ×2 (03:28→18:26)
[2018-12-06] MEDS: D5W-0.45 NACL + KCL 20 MEQ 1,000 ML IV SCH ×2 (03:28→14:32)
[2018-12-06] MEDS: METHYLPREDNISOLONE 40 MG INJ IV SCH (04:57)
[2018-12-06] MEDS: FENTAnyl (DRIP) 1000 mcg/100mL 100 ML IV SCH ×2 (07:07→21:44)
[2018-12-06] MEDS: LISINOPRIL 20 MG TAB PO SCH (08:34)
[2018-12-06] MEDS: FINASTERIDE 5 MG TAB PO SCH (08:34)
[2018-12-06] MEDS: NIFEdipine 10 MG CAP GTB SCH ×3 (08:35→20:53)
[2018-12-06] MEDS: ENOXAPARIN 40 MG/0.4 ML SYG SC SCH (08:51)
[2018-12-06] MEDS ORDERED: FAMOTIDINE 20 MG INJ IV SCH (09:00)
[2018-12-06] MEDS ORDERED: ENOXAPARIN 30 MG/0.3 ML SYG SC SCH (09:00)
[2018-12-06] MEDS: DOCUSATE SODIUM 10 MG/ML (10ML CUP) GTB SCH ×2 (12:37→20:52)
[2018-12-06] MEDS ORDERED: POTASSIUM PHOSPHATE 15 MM in SOD CHLORIDE 0.9% 250 ML IVPB ONE (13:00)
[2018-12-06] MEDS: HYDROCORTISONE 25 MG SUPP PR SCH ×2 (15:15→20:53)
[2018-12-06] MEDS: ATORVASTATIN 40 MG TAB PO SCH (20:53)
[2018-12-06] MEDS: INSULIN GLARGINE [LANTus] (100 UNITS/ML) SYG SC SCH (21:01)
[2018-12-07] VITALS (34 sets, daily range): BP systolic 128–177; BP diastolic 62–88; PULSE 61–95; RESP 14–26
[2018-12-07] MEDS: INSULIN ASPART [NOVOLOG] 3 ML PEN SC SCH ×6 (01:00→21:09)
[2018-12-07] MEDS: IPRATROPIUM (HFA) 12.9 GM INHALER INH SCH ×2 (01:02→07:08)
[2018-12-07] MEDS: ACETYLCYSTEINE 20% 4 ML VIAL NEB SCH ×4 (01:02→20:02)
[2018-12-07] MEDS: LEVALBUTEROL (HFA) 15 GM INHALER INH SCH ×2 (01:02→07:08)
[2018-12-07] MEDS: D5W-0.45 NACL + KCL 20 MEQ 1,000 ML IV SCH (04:56)
[2018-12-07] MEDS: MIDAZOLAM (DRIP) 50 mg/50 mL 50 ML IV SCH (05:40)
[2018-12-07] MEDS: DOCUSATE SODIUM 10 MG/ML (10ML CUP) GTB SCH ×2 (09:10→21:04)
[2018-12-07] MEDS: NIFEdipine 10 MG CAP GTB SCH ×3 (09:11→21:04)
[2018-12-07] MEDS: LISINOPRIL 20 MG TAB PO SCH (09:11)
[2018-12-07] MEDS: HYDROCORTISONE 25 MG SUPP PR SCH ×2 (09:11→21:04)
[2018-12-07] MEDS: FINASTERIDE 5 MG TAB PO SCH (09:11)
[2018-12-07] MEDS: ENOXAPARIN 40 MG/0.4 ML SYG SC SCH (09:13)
[2018-12-07] MEDS: METHYLPREDNISOLONE 40 MG INJ IV SCH (09:17)
[2018-12-07] MEDS: FAMOTIDINE 20 MG INJ IV SCH (09:28)
[2018-12-07] MEDS: LEVALBUTEROL (NEB) 1.25 MG/0.5 ML AMP HHN SCH ×2 (13:54→20:02)
[2018-12-07] MEDS: IPRATROPIUM (NEB) 0.5 MG/2.5 ML AMP HHN SCH ×2 (13:54→20:02)
[2018-12-07] MEDS ORDERED: POTASSIUM PHOSPHATE 15 MM in SOD CHLORIDE 0.9% 250 ML IVPB ONE (18:30)
[2018-12-07] MEDS: ATORVASTATIN 40 MG TAB PO SCH (21:04)
[2018-12-07] MEDS: INSULIN GLARGINE [LANTus] (100 UNITS/ML) SYG SC SCH (21:11)
[2018-12-08] VITALS (24 sets, daily range): BP systolic 60–164; BP diastolic 60–88; PULSE 72–111; RESP 13–25
[2018-12-08] MEDS: INSULIN ASPART [NOVOLOG] 3 ML PEN SC SCH ×6 (01:00→21:45)
[2018-12-08] MEDS: IPRATROPIUM (NEB) 0.5 MG/2.5 ML AMP HHN SCH ×4 (02:07→19:18)
[2018-12-08] MEDS: LEVALBUTEROL (NEB) 1.25 MG/0.5 ML AMP HHN SCH ×4 (02:07→19:18)
[2018-12-08] MEDS: ACETYLCYSTEINE 20% 4 ML VIAL NEB SCH ×4 (02:08→19:19)
[2018-12-08] MEDS: D5W-0.45 NACL + KCL 20 MEQ 1,000 ML IV SCH ×2 (04:30→23:41)
[2018-12-08] MEDS: FENTAnyl (DRIP) 1000 mcg/100mL 100 ML IV SCH (04:56)
[2018-12-08] MEDS: FINASTERIDE 5 MG TAB PO SCH (10:01)
[2018-12-08] MEDS: LISINOPRIL 20 MG TAB PO SCH (10:01)
[2018-12-08] MEDS: HYDROCORTISONE 25 MG SUPP PR SCH ×2 (10:01→21:48)
[2018-12-08] MEDS: NIFEdipine 10 MG CAP GTB SCH ×3 (10:01→21:48)
[2018-12-08] MEDS: METHYLPREDNISOLONE 40 MG INJ IV SCH (10:04)
[2018-12-08] MEDS: DOCUSATE SODIUM 10 MG/ML (10ML CUP) GTB SCH ×2 (10:05→21:48)
[2018-12-08] MEDS: ENOXAPARIN 40 MG/0.4 ML SYG SC SCH (10:06)
[2018-12-08] MEDS: FAMOTIDINE 20 MG INJ IV SCH (10:08)
[2018-12-08] MEDS ORDERED: INSULIN GLARGINE [LANTus] (100 UNITS/ML) SYG SC SCH (21:00)
[2018-12-08] MEDS: ATORVASTATIN 40 MG TAB PO SCH (21:48)
[2018-12-08] MEDS: INSULIN GLARGINE [LANTus] (100 UNITS/ML) SYG SC SCH (21:51)
[2018-12-09] VITALS: BP 126/70; PULSE 72; RESP 18
[2018-12-09] MEDS: LEVALBUTEROL (NEB) 1.25 MG/0.5 ML AMP HHN SCH ×4 (01:47→22:00)
[2018-12-09] MEDS: IPRATROPIUM (NEB) 0.5 MG/2.5 ML AMP HHN SCH ×4 (01:47→15:56)
[2018-12-09] MEDS: ACETYLCYSTEINE 20% 4 ML VIAL NEB SCH ×4 (01:47→15:56)
[2018-12-09] MEDS: INSULIN ASPART [NOVOLOG] 3 ML PEN SC SCH ×6 (02:02→21:00)
[2018-12-09 04:00] VITALS: BP 145/79; PULSE 88; RESP 20
[2018-12-09 07:27] VITALS: BP 160/80; PULSE 77; RESP 22
[2018-12-09] MEDS: DOCUSATE SODIUM 10 MG/ML (10ML CUP) GTB SCH ×2 (07:36→22:07)
[2018-12-09] MEDS: NIFEdipine 10 MG CAP GTB SCH ×3 (07:36→22:08)
[2018-12-09] MEDS: FINASTERIDE 5 MG TAB PO SCH (09:00)
[2018-12-09] MEDS ORDERED: HYDROCHLOROTHIAZIDE 25 MG TAB PO SCH (09:00)
[2018-12-09] MEDS: LISINOPRIL 20 MG TAB PO SCH (09:00)
[2018-12-09] MEDS: METHYLPREDNISOLONE 40 MG INJ IV SCH (10:22)
[2018-12-09] MEDS: FAMOTIDINE 20 MG INJ IV SCH (10:23)
[2018-12-09] MEDS: HYDROCORTISONE 25 MG SUPP PR SCH ×2 (10:25→22:07)
[2018-12-09] MEDS: ENOXAPARIN 40 MG/0.4 ML SYG SC SCH (10:34)
[2018-12-09 11:51] VITALS: BP 154/79; PULSE 76; RESP 21
[2018-12-09 15:29] VITALS: BP 126/76; PULSE 82; RESP 23
[2018-12-09] MEDS ORDERED: BISACODYL 10 MG SUPP PR PRN (15:30)
[2018-12-09] MEDS ORDERED: POTASSIUM PHOSPHATE 15 MM in SOD CHLORIDE 0.9% 250 ML IVPB ONE (16:00)
[2018-12-09] MEDS: CLONIDINE 0.1 MG/24 HR PATCH TRANSDERM SCH (16:38)
[2018-12-09] MEDS: KETOROLAC 30 MG INJ IV PRN (17:58)
[2018-12-09 19:49] VITALS: BP 134/62; PULSE 64; RESP 20
[2018-12-09] MEDS: INSULIN GLARGINE [LANTus] (100 UNITS/ML) SYG SC SCH (21:00)
[2018-12-09] MEDS ORDERED: LEVALBUTEROL (NEB) 1.25 MG/0.5 ML AMP HHN SCH (22:00)
[2018-12-09] MEDS: ATORVASTATIN 40 MG TAB PO SCH (22:07)
[2018-12-09] MEDS: ACETAMINOPHEN 650 MG SUPP PR PRN (22:09)
[2018-12-10] VITALS (10 sets, daily range): BP systolic 143–173; BP diastolic 68–83; PULSE 55–64; RESP 16–20
[2018-12-10] MEDS: IPRATROPIUM (NEB) 0.5 MG/2.5 ML AMP HHN SCH ×5 (00:51→20:36)
[2018-12-10] MEDS: LEVALBUTEROL (NEB) 1.25 MG/0.5 ML AMP HHN SCH ×5 (00:53→20:36)
[2018-12-10] MEDS: ACETYLCYSTEINE 20% 4 ML VIAL NEB SCH ×5 (00:53→20:36)
[2018-12-10] MEDS: INSULIN ASPART [NOVOLOG] 3 ML PEN SC SCH ×6 (01:00→22:09)
[2018-12-10] MEDS: D5W-0.45 NACL + KCL 20 MEQ 1,000 ML IV SCH ×2 (01:32→17:53)
[2018-12-10] MEDS: FAMOTIDINE 20 MG INJ IV SCH (08:36)
[2018-12-10] MEDS: DOCUSATE SODIUM 10 MG/ML (10ML CUP) GTB SCH ×2 (08:36→21:21)
[2018-12-10] MEDS: HYDROCORTISONE 25 MG SUPP PR SCH ×2 (08:36→21:21)
[2018-12-10] MEDS: NIFEdipine 10 MG CAP GTB SCH ×3 (08:36→21:21)
[2018-12-10] MEDS: METHYLPREDNISOLONE 40 MG INJ IV SCH (08:37)
[2018-12-10] MEDS: FINASTERIDE 5 MG TAB PO SCH (08:37)
[2018-12-10] MEDS: ENOXAPARIN 40 MG/0.4 ML SYG SC SCH (08:41)
[2018-12-10] MEDS: ENALAPRILAT 1.25 MG INJ IV PRN (13:03)
[2018-12-10] MEDS: KETOROLAC 30 MG INJ IV PRN (13:24)
[2018-12-10] MEDS: ATORVASTATIN 40 MG TAB PO SCH (21:20)
[2018-12-11] VITALS: BP 137/65; PULSE 61; RESP 18
[2018-12-11] MEDS: INSULIN GLARGINE [LANTus] (100 UNITS/ML) SYG SC SCH ×2 (00:12→21:34)
[2018-12-11] MEDS: INSULIN ASPART [NOVOLOG] 3 ML PEN SC SCH ×6 (01:00→21:00)
[2018-12-11] MEDS: ACETYLCYSTEINE 20% 4 ML VIAL NEB SCH ×6 (01:11→20:40)
[2018-12-11] MEDS: IPRATROPIUM (NEB) 0.5 MG/2.5 ML AMP HHN SCH ×6 (01:11→20:40)
[2018-12-11] MEDS: LEVALBUTEROL (NEB) 1.25 MG/0.5 ML AMP HHN SCH ×6 (01:11→20:40)
[2018-12-11 04:00] VITALS: BP 145/65; PULSE 61; RESP 18
[2018-12-11 07:14] VITALS: BP 163/73; PULSE 58; RESP 18
[2018-12-11] MEDS: KETOROLAC 30 MG INJ IV PRN (07:31)
[2018-12-11] MEDS: FINASTERIDE 5 MG TAB PO SCH (08:25)
[2018-12-11] MEDS: FAMOTIDINE 20 MG INJ IV SCH (08:25)
[2018-12-11] MEDS: METHYLPREDNISOLONE 40 MG INJ IV SCH (08:25)
[2018-12-11] MEDS: DOCUSATE SODIUM 10 MG/ML (10ML CUP) GTB SCH ×2 (08:25→21:30)
[2018-12-11] MEDS: HYDROCORTISONE 25 MG SUPP PR SCH ×2 (08:25→21:31)
[2018-12-11] MEDS: NIFEdipine 10 MG CAP GTB SCH ×3 (08:25→21:31)
[2018-12-11] MEDS: ENOXAPARIN 40 MG/0.4 ML SYG SC SCH (08:35)
[2018-12-11 11:09] VITALS: BP 138/72; PULSE 57; RESP 18
[2018-12-11] MEDS: D5W-0.45 NACL + KCL 20 MEQ 1,000 ML IV SCH (14:26)
[2018-12-11 15:25] VITALS: BP 129/70; PULSE 56; RESP 18
[2018-12-11] MEDS ORDERED: ACETAMINOPHEN 650MG/20.3ML CUP PO PRN (15:30)
[2018-12-11] MEDS: ENALAPRILAT 1.25 MG INJ IV PRN (18:41)
[2018-12-11 20:00] VITALS: BP 153/77; PULSE 55; RESP 18
[2018-12-11] MEDS: ATORVASTATIN 40 MG TAB PO SCH (21:31)
[2018-12-11] MEDS ORDERED: ZOLPIDEM 5 MG TAB PO PRN (23:00)
[2018-12-12] VITALS: BP 155/73; PULSE 61; RESP 20
[2018-12-12] MEDS: ACETYLCYSTEINE 20% 4 ML VIAL NEB SCH ×6 (00:45→20:34)
[2018-12-12] MEDS: LEVALBUTEROL (NEB) 1.25 MG/0.5 ML AMP HHN SCH ×6 (00:45→20:23)
[2018-12-12] MEDS: IPRATROPIUM (NEB) 0.5 MG/2.5 ML AMP HHN SCH ×6 (00:45→20:23)
[2018-12-12] MEDS: INSULIN ASPART [NOVOLOG] 3 ML PEN SC SCH ×6 (01:00→21:00)
[2018-12-12] MEDS: KETOROLAC 30 MG INJ IV PRN (01:12)
[2018-12-12] MEDS ORDERED: LORAZEPAM 2 MG INJ IV ONE (01:30)
[2018-12-12 04:00] VITALS: BP 149/72; PULSE 78; RESP 26
[2018-12-12 07:15] VITALS: BP 149/71; PULSE 74; RESP 18
[2018-12-12] MEDS: HYDROCORTISONE 25 MG SUPP PR SCH ×2 (08:39→21:18)
[2018-12-12] MEDS: DOCUSATE SODIUM 10 MG/ML (10ML CUP) GTB SCH ×2 (09:00→21:00)
[2018-12-12] MEDS: FINASTERIDE 5 MG TAB PO SCH (09:00)
[2018-12-12] MEDS: HYDROCHLOROTHIAZIDE 25 MG TAB PO SCH (09:00)
[2018-12-12] MEDS: NIFEdipine 10 MG CAP GTB SCH ×3 (09:00→21:00)
[2018-12-12] MEDS: ENOXAPARIN 40 MG/0.4 ML SYG SC SCH (09:04)
[2018-12-12] MEDS: METHYLPREDNISOLONE 40 MG INJ IV SCH (09:17)
[2018-12-12] MEDS: FAMOTIDINE 20 MG INJ IV SCH (09:17)
[2018-12-12] MEDS: ENALAPRILAT 1.25 MG INJ IV PRN ×2 (09:23→17:41)
[2018-12-12] MEDS: D5W-0.45 NACL + KCL 20 MEQ 1,000 ML IV SCH (09:25)
[2018-12-12 11:47] VITALS: BP 144/67; PULSE 90; RESP 17
[2018-12-12 15:15] VITALS: BP 126/74; PULSE 88; RESP 18
[2018-12-12] MEDS ORDERED: IOHEXOL 300MG/ML 150 ML BTL ONE (16:53)
[2018-12-12] MEDS ORDERED: SOD CHLORIDE 0.9% 100 ML ONE (16:53)
[2018-12-12 19:58] VITALS: BP 160/71; PULSE 68; RESP 19
[2018-12-12] MEDS: ATORVASTATIN 40 MG TAB PO SCH (21:00)
[2018-12-12] MEDS: INSULIN GLARGINE [LANTus] (100 UNITS/ML) SYG SC SCH (21:23)
[2018-12-13] VITALS: BP 156/75; PULSE 67; RESP 28
[2018-12-13] MEDS: INSULIN ASPART [NOVOLOG] 3 ML PEN SC SCH ×6 (01:00→21:00)
[2018-12-13] MEDS: LEVALBUTEROL (NEB) 1.25 MG/0.5 ML AMP HHN SCH ×6 (01:41→20:29)
[2018-12-13] MEDS: IPRATROPIUM (NEB) 0.5 MG/2.5 ML AMP HHN SCH ×6 (01:41→20:29)
[2018-12-13] MEDS: ACETYLCYSTEINE 20% 4 ML VIAL NEB SCH ×6 (01:54→20:30)
[2018-12-13 04:08] VITALS: BP 137/80; PULSE 73; RESP 20
[2018-12-13] MEDS: D5W-0.45 NACL + KCL 20 MEQ 1,000 ML IV SCH (05:47)
[2018-12-13 07:28] VITALS: BP 127/62; PULSE 66; RESP 22
[2018-12-13] MEDS: METHYLPREDNISOLONE 40 MG INJ IV SCH (08:49)
[2018-12-13] MEDS: HYDROCORTISONE 25 MG SUPP PR SCH ×2 (08:49→22:03)
[2018-12-13] MEDS: ENOXAPARIN 40 MG/0.4 ML SYG SC SCH (08:49)
[2018-12-13] MEDS: NIFEdipine 10 MG CAP GTB SCH ×3 (08:50→21:00)
[2018-12-13] MEDS: HYDROCHLOROTHIAZIDE 25 MG TAB PO SCH (08:50)
[2018-12-13] MEDS: FAMOTIDINE 20 MG INJ IV SCH (08:50)
[2018-12-13] MEDS: FINASTERIDE 5 MG TAB PO SCH (08:50)
[2018-12-13] MEDS: DOCUSATE SODIUM 10 MG/ML (10ML CUP) GTB SCH ×2 (08:50→21:00)
[2018-12-13] MEDS: LISINOPRIL 20 MG TAB PO SCH (08:51)
[2018-12-13 11:41] VITALS: BP 151/77; PULSE 69; RESP 22
[2018-12-13 15:20] VITALS: BP 135/68; PULSE 65; RESP 21
[2018-12-13 19:33] VITALS: BP 132/74; PULSE 91; RESP 18
[2018-12-13] MEDS: ATORVASTATIN 40 MG TAB PO SCH (21:00)
[2018-12-13] MEDS: INSULIN GLARGINE [LANTus] (100 UNITS/ML) SYG SC SCH (22:07)
[2018-12-14] VITALS (16 sets, daily range): BP systolic 126–155; BP diastolic 68–81; PULSE 65–101; RESP 18–46
[2018-12-14] MEDS: INSULIN ASPART [NOVOLOG] 3 ML PEN SC SCH ×6 (01:00→21:54)
[2018-12-14] MEDS: IPRATROPIUM (NEB) 0.5 MG/2.5 ML AMP HHN SCH ×6 (01:24→20:00)
[2018-12-14] MEDS: LEVALBUTEROL (NEB) 1.25 MG/0.5 ML AMP HHN SCH ×6 (01:24→20:00)
[2018-12-14] MEDS: ACETYLCYSTEINE 20% 4 ML VIAL NEB SCH ×6 (01:24→20:00)
[2018-12-14] MEDS: ACETAMINOPHEN 650 MG SUPP PR PRN (05:46)
[2018-12-14] MEDS: NIFEdipine 10 MG CAP GTB SCH ×3 (09:00→21:00)
[2018-12-14] MEDS: LISINOPRIL 20 MG TAB PO SCH (09:00)
[2018-12-14] MEDS: FINASTERIDE 5 MG TAB PO SCH (09:00)
[2018-12-14] MEDS: HYDROCHLOROTHIAZIDE 25 MG TAB PO SCH (09:00)
[2018-12-14] MEDS: DOCUSATE SODIUM 10 MG/ML (10ML CUP) GTB SCH ×2 (09:00→21:00)
[2018-12-14] MEDS: HYDROCORTISONE 25 MG SUPP PR SCH ×2 (10:00→21:58)
[2018-12-14] MEDS: METHYLPREDNISOLONE 40 MG INJ IV SCH (10:00)
[2018-12-14] MEDS: FAMOTIDINE 20 MG INJ IV SCH (10:00)
[2018-12-14] MEDS: ENOXAPARIN 40 MG/0.4 ML SYG SC SCH (10:00)
[2018-12-14] MEDS: POTASSIUM CHLORIDE 100 ML IVPB SCH ×2 (11:56→13:40)
[2018-12-14] MEDS ORDERED: POTASSIUM CHLORIDE 20 MEQ POWDER FOR ORAL SOLN PO ONE (12:30)
[2018-12-14] MEDS: NYSTATIN SUSP 5 ML CUP PO SCH ×3 (17:08→21:58)
[2018-12-14] MEDS ORDERED: PROPOFOL 40 ML ONE (19:08)
[2018-12-14] MEDS: ATORVASTATIN 40 MG TAB PO SCH (21:50)
[2018-12-14] MEDS: INSULIN GLARGINE [LANTus] (100 UNITS/ML) SYG SC SCH (21:53)
[2018-12-15] VITALS: BP 156/82; PULSE 68; RESP 20
[2018-12-15] MEDS: INSULIN ASPART [NOVOLOG] 3 ML PEN SC SCH ×6 (01:00→21:22)
[2018-12-15] MEDS: LEVALBUTEROL (NEB) 1.25 MG/0.5 ML AMP HHN SCH ×6 (01:25→20:14)
[2018-12-15] MEDS: ACETYLCYSTEINE 20% 4 ML VIAL NEB SCH ×6 (01:25→20:14)
[2018-12-15] MEDS: IPRATROPIUM (NEB) 0.5 MG/2.5 ML AMP HHN SCH ×6 (01:25→20:13)
[2018-12-15] MEDS ORDERED: LORAZEPAM 2 MG INJ IV ONE (02:30)
[2018-12-15 04:00] VITALS: BP 157/79; PULSE 84; RESP 20
[2018-12-15 07:25] VITALS: BP 169/87; PULSE 68; RESP 22
[2018-12-15] MEDS: METHYLPREDNISOLONE 40 MG INJ IV SCH (08:56)
[2018-12-15] MEDS: FAMOTIDINE 20 MG INJ IV SCH (08:57)
[2018-12-15] MEDS: ENOXAPARIN 40 MG/0.4 ML SYG SC SCH (08:57)
[2018-12-15] MEDS: DOCUSATE SODIUM 10 MG/ML (10ML CUP) GTB SCH ×2 (08:58→21:00)
[2018-12-15] MEDS: FINASTERIDE 5 MG TAB PO SCH (08:58)
[2018-12-15] MEDS: HYDROCORTISONE 25 MG SUPP PR SCH ×2 (08:58→21:13)
[2018-12-15] MEDS: NIFEdipine 10 MG CAP GTB SCH ×3 (08:58→21:00)
[2018-12-15] MEDS: LISINOPRIL 20 MG TAB PO SCH (08:58)
[2018-12-15] MEDS: HYDROCHLOROTHIAZIDE 25 MG TAB PO SCH (08:58)
[2018-12-15 11:14] VITALS: BP 158/87; PULSE 86; RESP 22
[2018-12-15] MEDS: NYSTATIN SUSP 5 ML CUP PO SCH ×3 (14:07→21:00)
[2018-12-15 15:18] VITALS: BP 155/72; PULSE 66; RESP 22
[2018-12-15] MEDS: D5W-0.45 NACL + KCL 20 MEQ 1,000 ML IV SCH (17:03)
[2018-12-15 20:00] VITALS: BP 160/73; PULSE 63; RESP 19
[2018-12-15] MEDS: ATORVASTATIN 40 MG TAB PO SCH (21:00)
[2018-12-15] MEDS: INSULIN GLARGINE [LANTus] (100 UNITS/ML) SYG SC SCH (21:21)
[2018-12-16] VITALS (7 sets, daily range): BP systolic 113–173; BP diastolic 51–78; PULSE 52–90; RESP 18–20
[2018-12-16] MEDS: IPRATROPIUM (NEB) 0.5 MG/2.5 ML AMP HHN SCH ×6 (00:57→20:13)
[2018-12-16] MEDS: ACETYLCYSTEINE 20% 4 ML VIAL NEB SCH ×6 (00:57→20:13)
[2018-12-16] MEDS: LEVALBUTEROL (NEB) 1.25 MG/0.5 ML AMP HHN SCH ×6 (00:58→20:13)
[2018-12-16] MEDS: INSULIN ASPART [NOVOLOG] 3 ML PEN SC SCH ×6 (01:00→22:00)
[2018-12-16] MEDS: D5W-0.45 NACL + KCL 20 MEQ 1,000 ML IV SCH ×2 (05:51→17:30)
[2018-12-16] MEDS: NIFEdipine 10 MG CAP GTB SCH ×3 (08:48→21:00)
[2018-12-16] MEDS: DOCUSATE SODIUM 10 MG/ML (10ML CUP) GTB SCH ×2 (08:48→21:00)
[2018-12-16] MEDS: FINASTERIDE 5 MG TAB PO SCH (08:49)
[2018-12-16] MEDS: LISINOPRIL 20 MG TAB PO SCH (08:49)
[2018-12-16] MEDS: HYDROCHLOROTHIAZIDE 25 MG TAB PO SCH (08:49)
[2018-12-16] MEDS: FAMOTIDINE 20 MG INJ IV SCH (09:01)
[2018-12-16] MEDS: METHYLPREDNISOLONE 40 MG INJ IV SCH (09:02)
[2018-12-16] MEDS: ENOXAPARIN 40 MG/0.4 ML SYG SC SCH (09:02)
[2018-12-16] MEDS: NYSTATIN SUSP 5 ML CUP PO SCH ×4 (09:02→21:55)
[2018-12-16] MEDS: HYDROCORTISONE 25 MG SUPP PR SCH ×2 (09:02→21:55)
[2018-12-16] MEDS: CLONIDINE 0.1 MG/24 HR PATCH TRANSDERM SCH (18:31)
[2018-12-16] MEDS: ATORVASTATIN 40 MG TAB PO SCH (21:00)
[2018-12-16] MEDS: INSULIN GLARGINE [LANTus] (100 UNITS/ML) SYG SC SCH (22:00)
[2018-12-17] VITALS (7 sets, daily range): BP systolic 133–170; BP diastolic 69–83; PULSE 52–89; RESP 18–20
[2018-12-17] MEDS: IPRATROPIUM (NEB) 0.5 MG/2.5 ML AMP HHN SCH ×5 (01:12→17:45)
[2018-12-17] MEDS: ACETYLCYSTEINE 20% 4 ML VIAL NEB SCH ×5 (01:12→17:45)
[2018-12-17] MEDS: LEVALBUTEROL (NEB) 1.25 MG/0.5 ML AMP HHN SCH ×5 (01:12→17:45)
[2018-12-17] MEDS: INSULIN ASPART [NOVOLOG] 3 ML PEN SC SCH ×6 (02:47→22:20)
[2018-12-17] MEDS: D5W-0.45 NACL + KCL 20 MEQ 1,000 ML IV SCH ×3 (05:57→21:40)
[2018-12-17] MEDS: DOCUSATE SODIUM 10 MG/ML (10ML CUP) GTB SCH ×2 (09:00→21:00)
[2018-12-17] MEDS: HYDROCHLOROTHIAZIDE 25 MG TAB PO SCH (09:00)
[2018-12-17] MEDS: NIFEdipine 10 MG CAP GTB SCH ×3 (09:00→21:00)
[2018-12-17] MEDS: FINASTERIDE 5 MG TAB PO SCH (09:00)
[2018-12-17] MEDS: LISINOPRIL 20 MG TAB PO SCH (09:00)
[2018-12-17] MEDS: METHYLPREDNISOLONE 40 MG INJ IV SCH (09:23)
[2018-12-17] MEDS: FAMOTIDINE 20 MG INJ IV SCH (09:23)
[2018-12-17] MEDS: NYSTATIN SUSP 5 ML CUP PO SCH ×4 (09:24→21:40)
[2018-12-17] MEDS: HYDROCORTISONE 25 MG SUPP PR SCH ×2 (09:24→21:40)
[2018-12-17] MEDS: ENOXAPARIN 40 MG/0.4 ML SYG SC SCH (09:46)
[2018-12-17] MEDS: ACETAMINOPHEN 650 MG SUPP PR PRN (10:04)
[2018-12-17] MEDS: ENALAPRILAT 1.25 MG INJ IV PRN (15:41)
[2018-12-17] MEDS ORDERED: CLONIDINE 0.2 MG/24 HR PATCH TRANSDERM SCH (18:00)
[2018-12-17] MEDS: ATORVASTATIN 40 MG TAB PO SCH (21:00)
[2018-12-17] MEDS: INSULIN GLARGINE [LANTus] (100 UNITS/ML) SYG SC SCH (22:19)
[2018-12-18] MEDS: LEVALBUTEROL (NEB) 1.25 MG/0.5 ML AMP HHN SCH ×4 (00:47→23:20)
[2018-12-18] MEDS: ACETYLCYSTEINE 20% 4 ML VIAL NEB SCH ×4 (00:47→23:32)
[2018-12-18] MEDS: IPRATROPIUM (NEB) 0.5 MG/2.5 ML AMP HHN SCH ×4 (00:47→23:20)
[2018-12-18] MEDS: INSULIN ASPART [NOVOLOG] 3 ML PEN SC SCH ×6 (01:00→21:50)
[2018-12-18 04:10] VITALS: BP 154/76; PULSE 56; RESP 20
[2018-12-18] MEDS: D5W-0.45 NACL + KCL 20 MEQ 1,000 ML IV SCH ×3 (07:00→20:27)
[2018-12-18 07:36] VITALS: BP 178/80; PULSE 50; RESP 20
[2018-12-18] MEDS: NIFEdipine 10 MG CAP GTB SCH ×3 (09:00→21:00)
[2018-12-18] MEDS: NYSTATIN SUSP 5 ML CUP PO SCH ×4 (09:00→22:06)
[2018-12-18] MEDS: HYDROCHLOROTHIAZIDE 25 MG TAB PO SCH (09:00)
[2018-12-18] MEDS: DOCUSATE SODIUM 10 MG/ML (10ML CUP) GTB SCH ×2 (09:00→21:00)
[2018-12-18] MEDS: LISINOPRIL 20 MG TAB PO SCH (09:00)
[2018-12-18] MEDS: FINASTERIDE 5 MG TAB PO SCH (09:00)
[2018-12-18] MEDS: METHYLPREDNISOLONE 40 MG INJ IV SCH (09:20)
[2018-12-18] MEDS: FAMOTIDINE 20 MG INJ IV SCH (09:20)
[2018-12-18] MEDS: HYDROCORTISONE 25 MG SUPP PR SCH ×2 (09:21→22:06)
[2018-12-18] MEDS: ENOXAPARIN 40 MG/0.4 ML SYG SC SCH (09:41)
[2018-12-18] MEDS: ENALAPRILAT 1.25 MG INJ IV PRN (09:42)
[2018-12-18 11:23] VITALS: BP 175/81; PULSE 55; RESP 20
[2018-12-18 13:30] VITALS: BP 156/74; PULSE 77
[2018-12-18 15:39] VITALS: BP 153/70; PULSE 49; RESP 20
[2018-12-18 20:08] VITALS: BP 159/78; PULSE 51; RESP 20
[2018-12-18] MEDS: ATORVASTATIN 40 MG TAB PO SCH (21:00)
[2018-12-18] MEDS: INSULIN GLARGINE [LANTus] (100 UNITS/ML) SYG SC SCH (22:06)
[2018-12-18] MEDS: ACETAMINOPHEN 650 MG SUPP PR PRN (23:00)
[2018-12-19] MEDS: INSULIN GLARGINE [LANTus] (100 UNITS/ML) SYG SC SCH ×2 (00:59→22:30)
[2018-12-19] MEDS: ENALAPRILAT 1.25 MG INJ IV PRN (00:59)
[2018-12-19] MEDS: INSULIN ASPART [NOVOLOG] 3 ML PEN SC SCH ×6 (01:00→22:19)
[2018-12-19 04:13] VITALS: BP 158/77; PULSE 47; RESP 20
[2018-12-19 07:07] VITALS: BP 150/72; PULSE 49; RESP 19
[2018-12-19] MEDS: LEVALBUTEROL (NEB) 1.25 MG/0.5 ML AMP HHN SCH ×3 (07:54→23:49)
[2018-12-19] MEDS: IPRATROPIUM (NEB) 0.5 MG/2.5 ML AMP HHN SCH ×3 (07:55→23:49)
[2018-12-19] MEDS: ACETYLCYSTEINE 20% 4 ML VIAL NEB SCH ×3 (07:56→23:59)
[2018-12-19] MEDS: FINASTERIDE 5 MG TAB PO SCH (09:00)
[2018-12-19] MEDS: LISINOPRIL 20 MG TAB PO SCH (09:00)
[2018-12-19] MEDS: NIFEdipine 10 MG CAP GTB SCH ×3 (09:00→22:16)
[2018-12-19] MEDS: METHYLPREDNISOLONE 40 MG INJ IV SCH (09:00)
[2018-12-19] MEDS: HYDROCHLOROTHIAZIDE 25 MG TAB PO SCH (09:00)
[2018-12-19] MEDS: DOCUSATE SODIUM 10 MG/ML (10ML CUP) GTB SCH ×2 (09:00→22:15)
[2018-12-19] MEDS: FAMOTIDINE 20 MG INJ IV SCH (09:00)
[2018-12-19] MEDS: HYDROCORTISONE 25 MG SUPP PR SCH ×2 (10:01→22:19)
[2018-12-19 11:12] VITALS: BP 144/69; PULSE 48; RESP 20
[2018-12-19] MEDS: ENOXAPARIN 40 MG/0.4 ML SYG SC SCH (11:38)
[2018-12-19] MEDS: NYSTATIN SUSP 5 ML CUP PO SCH ×4 (13:00→22:19)
[2018-12-19 15:51] VITALS: BP 151/79; PULSE 84; RESP 20
[2018-12-19] MEDS: D5W-0.45 NACL + KCL 20 MEQ 1,000 ML IV SCH (16:27)
[2018-12-19 19:33] VITALS: BP 146/79; PULSE 89; RESP 20
[2018-12-19] MEDS: ATORVASTATIN 40 MG TAB PO SCH (22:16)
[2018-12-20] VITALS: BP 166/76; PULSE 51; RESP 18
[2018-12-20] MEDS: INSULIN ASPART [NOVOLOG] 3 ML PEN SC SCH ×6 (01:45→20:18)
[2018-12-20] MEDS: ENALAPRILAT 1.25 MG INJ IV PRN (02:12)
[2018-12-20] MEDS: D5W-0.45 NACL + KCL 20 MEQ 1,000 ML IV SCH (02:20)
[2018-12-20 03:22] VITALS: BP 146/70; PULSE 50; RESP 18
[2018-12-20 07:14] VITALS: BP 155/76; PULSE 52; RESP 18
[2018-12-20] MEDS: LEVALBUTEROL (NEB) 1.25 MG/0.5 ML AMP HHN SCH ×3 (08:10→23:19)
[2018-12-20] MEDS: IPRATROPIUM (NEB) 0.5 MG/2.5 ML AMP HHN SCH ×3 (08:10→23:19)
[2018-12-20] MEDS: ACETYLCYSTEINE 20% 4 ML VIAL NEB SCH ×3 (08:10→23:19)
[2018-12-20] MEDS: LISINOPRIL 20 MG TAB PO SCH (09:00)
[2018-12-20] MEDS: FINASTERIDE 5 MG TAB PO SCH (09:00)
[2018-12-20] MEDS: NIFEdipine 10 MG CAP GTB SCH ×3 (09:00→20:20)
[2018-12-20] MEDS: DOCUSATE SODIUM 10 MG/ML (10ML CUP) GTB SCH ×2 (09:00→20:20)
[2018-12-20] MEDS: HYDROCORTISONE 25 MG SUPP PR SCH ×2 (10:39→20:21)
[2018-12-20] MEDS: METHYLPREDNISOLONE 40 MG INJ IV SCH (10:39)
[2018-12-20] MEDS: FAMOTIDINE 20 MG INJ IV SCH (10:39)
[2018-12-20] MEDS: NYSTATIN SUSP 5 ML CUP PO SCH ×4 (10:48→20:19)
[2018-12-20] MEDS: ENOXAPARIN 40 MG/0.4 ML SYG SC SCH (10:55)
[2018-12-20 11:12] VITALS: BP 154/88; PULSE 85; RESP 19
[2018-12-20 16:21] VITALS: BP 138/64; PULSE 68; RESP 18
[2018-12-20 20:00] VITALS: BP 154/75; PULSE 63; RESP 20
[2018-12-20] MEDS: ATORVASTATIN 40 MG TAB PO SCH (20:21)
[2018-12-20] MEDS: INSULIN GLARGINE [LANTus] (100 UNITS/ML) SYG SC SCH (20:38)
[2018-12-21] VITALS (7 sets, daily range): BP systolic 124–173; BP diastolic 68–81; PULSE 50–67; RESP 16–20
[2018-12-21] MEDS: INSULIN ASPART [NOVOLOG] 3 ML PEN SC SCH ×6 (01:00→20:45)
[2018-12-21] MEDS: NIFEdipine 10 MG CAP GTB SCH ×3 (08:16→20:34)
[2018-12-21] MEDS: DOCUSATE SODIUM 10 MG/ML (10ML CUP) GTB SCH ×2 (08:16→20:34)
[2018-12-21] MEDS: LISINOPRIL 20 MG TAB PO SCH (08:17)
[2018-12-21] MEDS: NYSTATIN SUSP 5 ML CUP PO SCH ×5 (08:17→20:46)
[2018-12-21] MEDS: FINASTERIDE 5 MG TAB PO SCH (08:17)
[2018-12-21] MEDS: FAMOTIDINE 20 MG INJ IV SCH (08:27)
[2018-12-21] MEDS: METHYLPREDNISOLONE 40 MG INJ IV SCH (08:27)
[2018-12-21] MEDS: HYDROCORTISONE 25 MG SUPP PR SCH ×2 (08:27→20:35)
[2018-12-21] MEDS ORDERED: POTASSIUM CHLORIDE 100 ML IVPB ONE ×2 (08:30→16:30)
[2018-12-21] MEDS: ENOXAPARIN 40 MG/0.4 ML SYG SC SCH (08:35)
[2018-12-21] MEDS: ACETYLCYSTEINE 20% 4 ML VIAL NEB SCH ×3 (08:43→23:59)
[2018-12-21] MEDS: IPRATROPIUM (NEB) 0.5 MG/2.5 ML AMP HHN SCH ×3 (08:43→23:59)
[2018-12-21] MEDS: LEVALBUTEROL (NEB) 1.25 MG/0.5 ML AMP HHN SCH ×2 (08:43→16:34)
[2018-12-21] MEDS: ACCU-CHEK XX SCH ×7 (09:00→21:09)
[2018-12-21] MEDS: ENALAPRILAT 1.25 MG INJ IV PRN (13:09)
[2018-12-21] MEDS ORDERED: TPN 1,000 ML IV SCH (16:00)
[2018-12-21] MEDS: ATORVASTATIN 40 MG TAB PO SCH (20:35)
[2018-12-21] MEDS: INSULIN GLARGINE [LANTus] (100 UNITS/ML) SYG SC SCH (20:45)
[2018-12-22] VITALS: BP 173/73; PULSE 52; RESP 20
[2018-12-22] MEDS: ENALAPRILAT 1.25 MG INJ IV PRN ×3 (00:32→14:48)
[2018-12-22] MEDS: INSULIN ASPART [NOVOLOG] 3 ML PEN SC SCH ×4 (01:01→12:48)
[2018-12-22] MEDS: ACCU-CHEK XX SCH ×4 (01:02→12:48)
[2018-12-22 04:00] VITALS: BP 165/74; PULSE 52; RESP 20
[2018-12-22 05:25] VITALS: BP 157/74; PULSE 47; RESP 20
[2018-12-22 07:30] VITALS: BP 176/77; PULSE 51; RESP 20
[2018-12-22] MEDS: LEVALBUTEROL (NEB) 1.25 MG/0.5 ML AMP HHN SCH ×2 (07:51)
[2018-12-22] MEDS: IPRATROPIUM (NEB) 0.5 MG/2.5 ML AMP HHN SCH (07:51)
[2018-12-22] MEDS: ACETYLCYSTEINE 20% 4 ML VIAL NEB SCH (08:02)
[2018-12-22] MEDS: FAMOTIDINE 20 MG INJ IV SCH (08:57)
[2018-12-22] MEDS: HYDROCORTISONE 25 MG SUPP PR SCH (08:57)
[2018-12-22] MEDS: METHYLPREDNISOLONE 40 MG INJ IV SCH (08:57)
[2018-12-22] MEDS: DOCUSATE SODIUM 10 MG/ML (10ML CUP) GTB SCH (09:00)
[2018-12-22] MEDS: LISINOPRIL 20 MG TAB PO SCH (09:00)
[2018-12-22] MEDS: NYSTATIN SUSP 5 ML CUP PO SCH ×2 (09:00→12:30)
[2018-12-22] MEDS: NIFEdipine 10 MG CAP GTB SCH ×2 (09:00→12:30)
[2018-12-22] MEDS: FINASTERIDE 5 MG TAB PO SCH (09:00)
[2018-12-22] MEDS: ENOXAPARIN 40 MG/0.4 ML SYG SC SCH (09:05)
[2018-12-22] MEDS ORDERED: POTASSIUM PHOSPHATE 30 MM in SOD CHLORIDE 0.9% 250 ML IVPB ONE (10:30)
[2018-12-22 11:34] VITALS: BP_SYST 160; BP_SYST 98; BP_DIAS 65; BP_DIAS 74; PULSE 97; RESP 18
== END 2018-12-22 15:53 | DRG 4 ==
LOC: E/R 03:27 → CANRESERV 07:04 → ICU 08:39 → EDBEDREQSVC 08:40 → TEL 12-08 23:55
PROVIDERS: ADMIT Family Medicine; ATTEND Internal Medicine
PROC: 5A1935Z Respiratory Ventilation, Less than 24 Consecutive Hours (ICD-10-PCS; 2018-12-04)
PROC: 0BH17EZ Insertion of Endotracheal Airway into Trachea, Via Natural or Artificial Opening (ICD-10-PCS; 2018-12-04)
PROC: 0B110F4 Bypass Trachea to Cutaneous with Tracheostomy Device, Open Approach (ICD-10-PCS; principal; 2018-12-04 20:30)
PROC: 0DJ08ZZ Inspection of Upper Intestinal Tract, Via Natural or Artificial Opening Endoscopic (ICD-10-PCS; 2018-12-14)
DX: J96.01 Acute respiratory failure with hypoxia (principal); C78.39 Secondary malignant neoplasm of other respiratory organs; K56.7 Ileus, unspecified; J96.02 Acute respiratory failure with hypercapnia; C61 Malignant neoplasm of prostate; J44.9 Chronic obstructive pulmonary disease, unspecified; I10 Essential (primary) hypertension; E78.5 Hyperlipidemia, unspecified; E11.9 Type 2 diabetes mellitus without complications; N40.0 Benign prostatic hyperplasia without lower urinary tract symptoms; G47.33 Obstructive sleep apnea (adult) (pediatric); J38.6 Stenosis of larynx; R62.7 Adult failure to thrive; D64.9 Anemia, unspecified; E66.01 Morbid (severe) obesity due to excess calories; K29.70 Gastritis, unspecified, without bleeding; J39.2 Other diseases of pharynx; R13.10 Dysphagia, unspecified; B37.9 Candidiasis, unspecified; K64.9 Unspecified hemorrhoids; Z51.5 Encounter for palliative care; Z68.27 Body mass index [BMI] 27.0-27.9, adult; Z87.891 Personal history of nicotine dependence
CPT/HCPCS: 31500; 36415; 36573; 36600; 70491; 71045; 71260; 74018; 74176; 74230; 80048; 80053; 82803; 82962; 83605; 83735; 83880; 84100; 84132; 84134; 84153; 84154; 84443; 84478; 84484; 85025; 85610; 85730; 87070; 87081; 92507; 92523; 92526; 92610; 92611; 93005; 93306; 94002; 94003; 94640; 94644; 94660; 94664; 94668; 96374; 97110; 97116; 97163; 97530; C9113; J1170; J1650; J1815; J1885; J1956; J2060; J2250; J2710; J2920; J2930; J3010; J3480; J7040; J7050; Q9967